=== PATIENT | male | born 1950 | race Caucasian/White ===

== ENCOUNTER → 2017-07-27 | Outpatient (CLI) | payer BC ==
[~2017-07-27] MED LIST: ASCO1CAP3 PO; ATOR80TA PO; COEN1CAP17 PO; LEVO25TA PO; MULT-892 PO; OMEG1CAP81 PO; SERT-234 PO; WLLXL300 PO
--- NOTE | 2017-08-03 08:04 | CODING QUERY MEDICAL NECESSITY ---
SUPPORTING DIAGNOSIS NEEDED A supporting diagnosis is required for the test/procedure performed on this patient in order for us to be reimbursed by the patient's insurance. Please provide a supporting diagnosis for the following test/procedure listed below next to the test name along with your signature. *If there is no additional diagnosis for this patient that would support the following test/procedure please document that below next to the test/procedure. Test(s)/Procedure(s) that require a supporting diagnosis: * DXA, BONE DENSITY AXIAL DIAGNOSIS: Provider Signature: Date: Thank you Corry K[facility] Information Management Once completed, please kindly fax back to [phone] For questions please call [phone]
== END | disposition home or self-care (01) ==
LOC: C.MAMM 08:22
PROVIDERS: ATTEND Family Medicine
DX: Z87.81 Personal history of (healed) traumatic fracture (principal)

== ENCOUNTER → 2017-10-16 | Outpatient (CLI) | payer OTHER ==
--- NOTE | 2017-10-16 14:03 | DIAGNOSTIC IMAGING REPORT ---
LEFT FOOT 3 VIEWS CLINICAL HISTORY: Left foot pain. FINDINGS: 3 views of the left foot are obtained. No prior studies are available for comparison at the time of dictation. The skeletal structures are osteopenic. There are postoperative changes from osteotomy and fusion at the first metatarsophalangeal joint. A buttress plate and cortical lag screw transfixes the joint space. 2 of the screws transfix the buttress plate appear to be fractured. There is persistent hallux valgus, with irregularity along the articular surface and failure of bony fusion and surrounding bony overgrowth. There is an osteotomy involving the second through fifth metatarsal heads. No acute fracture is identified. Degenerative spurring seen along the dorsal aspect of the tarsal bones. Mild soft tissue swelling is suggested in the forefoot. IMPRESSION: 1. Small tissue swelling with no acute bony abnormality clearly identified. 2. Osteopenia, hallux valgus, and postoperative change as above. 3. Two of the cortical lag screws transfixing the buttress plate at the first metatarsophalangeal joint appear to be fractured. There is failure of bony fusion at the first MTP. Electronically signed by: Yousuf Nicholas M.D. 10/16/2017 2:02 PM Dictated Date/Time: 10/16/2017 1:59 PM
== END | disposition home or self-care (01) ==
LOC: C.RAD1850 13:50
PROVIDERS: ATTEND Family Medicine
DX: M79.672 Pain in left foot (principal)

== ENCOUNTER → 2017-12-21 | Outpatient (CLI) | payer OTHER ==
[~2017-12-21] MED LIST changes: +CIPR1TAB11 PO; +OPTIRAY 320 IV PRN
--- NOTE | 2017-12-21 12:39 | DIAGNOSTIC IMAGING REPORT ---
RIGHT FOOT CT CT DOSE: 197.34 mGy.cm HISTORY: Right foot NON HEALING WOUND TECHNIQUE: Multiaxial CT images of the right foot were performed and reformatted in the sagittal and coronal plane without the use of contrast. A dose lowering technique was utilized adhering to the principles of ALARA. COMPARISON: Right foot MRI 02/25/2015. FINDINGS: No areas of cortical destruction or suspicious erosions to suggest osteomyelitis. Specifically, the bones at the first MTP joint show no definite evidence for osteomyelitis. The sesamoid bones at the head of the first metatarsal are partially fused. Moderate osteoarthritis at the first MTP joint and mild to moderate osteoarthritis within the DIP and PIP joints. The fourth toe is not identified and likely surgically absent. No acute fracture or dislocation identified within the right foot. Postoperative changes consistent with fusion of the first tarsometatarsal joint. There is a single screw traversing of the joint which appears intact. There is a second screw through the proximal shaft of the first metatarsal with the tip extending into the proximal shaft of the second metatarsal. Flexion deformities seen within the toes. There is also lateral angulation of the first through third toes. Moderate osteoarthritis at the second and third MTP joints. Cortical thickening within the distal shafts the third metatarsal favors an old, healed fracture. Soft tissue thickening/swelling at the plantar aspect of the first MTP joint. No loculated fluid collections to suggest an abscess. There is also a 7 mm skin ulceration at the plantar aspect of the first MTP joint. Subcutaneous fluid at the plantar aspect of the heel. This does not appear to be loculated and favors edema. IMPRESSION: 1. No evidence for osteomyelitis within the right foot. 2. Soft tissue swelling/thickening at the plantar aspect of the first MTP joint. This favors a cellulitis. There is also a 7 mm skin ulceration at this location. No loculated fluid collections to suggest an abscess. 3. Postoperative and degenerative changes as described above. Electronically signed by: Jarret Corbett M.D. 12/21/2017 12:37 PM Dictated Date/Time: 12/21/2017 12:26 PM
== END | disposition home or self-care (01) ==
LOC: C.CTS 11:50
PROVIDERS: ATTEND Physician Assistant
DX: S91.301A Unspecified open wound, right foot, initial encounter (principal); X58.XXXA Exposure to other specified factors, initial encounter

== ENCOUNTER 2022-02-18 05:31 | Observation (INO) ==
--- NOTE | 2021-12-13 10:23 | PAT Medication Instructions ---
Medication Instructions Date of Service December 13, 2021 Home Medications atorvastatin 20 mg tablet 20 mg PO HS sertraline 100 mg tablet 50 mg PO HS ascorbic acid (vitamin C) 1,000 mg tablet (Vitamin C) 1 g PO QAM cholecalciferol (vitamin D3) 25 mcg (1,000 unit) tablet (Vitamin D3) 1,000 mcg PO QAM levothyroxine 125 mcg tablet 125 mcg PO QAM noxqsnhrbigy-kgkfwuva-zpktym tablet 1 tab PO DAILY omega-3 fatty acids 1,000 mg PO QAM bupropion HCl 150 mg 24 hr tablet, extended release 150 mg PO QAM coenzyme Q10 100 mg capsule (CoQ-10) 200 mg PO HS omeprazole 20 mg tablet,delayed release 20 mg PO HS STOP taking 2 weeks before surgery omega-3 fatty acids 1,000 mg PO QAM coenzyme Q10 100 mg capsule (CoQ-10) 200 mg PO HS DO NOT take the morning of surgery ascorbic acid (vitamin C) 1,000 mg tablet (Vitamin C) 1 g PO QAM cholecalciferol (vitamin D3) 25 mcg (1,000 unit) tablet (Vitamin D3) 1,000 mcg PO QAM hmlfxmurdwyy-rqesdlui-tvyhmv tablet 1 tab PO DAILY Take morning of surgery With a small sip of water, OTHERWISE NOTHING TO EAT OR DRINK AFTER MIDNIGHT: levothyroxine 125 mcg tablet 125 mcg PO QAM bupropion HCl 150 mg 24 hr tablet, extended release 150 mg PO QAM Take evening before surgery atorvastatin 20 mg tablet 20 mg PO HS sertraline 100 mg tablet 50 mg PO HS omeprazole 20 mg tablet,delayed release 20 mg PO HS Other Notes If you have any questions please call us at [phone] or [phone] or [phone] or [phone]
--- NOTE | 2022-01-24 11:00 | Anesthesiology Consultation ---
Date of Service January 24, 2022 Assessment & Plan (1) Encounter for pre-operative examination: Chart Review Chart Review: Acceptable Risk for Surgery (pending preop Covid testing results ) and Patient seen in Pre Admission Testing - Discussed with Dr. Bacon- due to chronic foot ulcers and other comorbidities- pt is NOT a Same Day Joint candidate- surgeon's office informed Per PAT appt on 01/24/22, patient denies any recent travel or large group activities. No known Covid positive exposures or Covid related symptoms. No known Covid infection in the past 90 days. Pt is vaccinated for Covid. Preop Covid testing scheduled 02/18/22 = will await results. Educated on importance of self quarantining, social distancing and wearing mask in public for the patient one week prior to surgery and after Covid testing done Pt seen by cardio 12/17/21= Non pressure chronic ulcer of right foot- following with wound clinic x years. Aneurysm of artery lower extremity - will order a bdominal angiogram, nuclear stress test and ECHO. Hyperlipidemia. Atherosclerosis of extremities with ulcerationcontinue aspirin. Rashade did discuss left TKA with patient which is scheduled for January. Advised him surgeon aware of stent placement to avoid tourniquet on this area with surgery. He reports surgeon already aware of wound on left lower extremity. Teaching & Discussion Pre-Anesthesia Teaching/Discussion Notes: Instructed NPO after midnight before surgery,except medications with 15 cc of water. Medication instructions provided according to the PAT guidelines. History Surgery Operation Date: 02/18/22 07:00 Proposed Procedures p OP: Left Total Knee Arthroplasty - Fredo Sullivan MD Height/Weight Height: 5 ft 10 in Weight: 84.8 kg Allergies Allergy/AdvReac Type Severity Reaction Status Date / Time No Known Allergies Allergy Unverified 01/19/22 15:41 Medications Home Medications Medication Instructions Recorded Confirmed Last Taken atorvastatin 20 mg tablet 20 mg PO HS 09/21/18 01/19/22 09/20/18 ascorbic acid (vitamin C) 1,000 mg 1 g PO QAM 05/21/20 01/19/22 Unknown tablet (Vitamin C) cholecalciferol (vitamin D3) 25 1,000 mcg PO QAM 05/21/20 01/19/22 Unknown mcg (1,000 unit) tablet (Vitamin D3) levothyroxine 125 mcg tablet 125 mcg PO QAM 05/21/20 01/19/22 05/21/20 yvfmyxuxchnv-pjkktjaz-xgzoam tablet 1 tab PO QAM 05/21/20 01/19/22 Unknown omega-3 fatty acids 1,000 mg PO QAM 05/21/20 01/19/22 Unknown bupropion HCl 150 mg 24 hr tablet, 150 mg PO QAM 12/10/21 01/19/22 Unknown extended release coenzyme Q10 100 mg capsule 200 mg PO HS 12/10/21 01/19/22 Unknown (CoQ-10) omeprazole 20 mg tablet,delayed 20 mg PO HS 12/10/21 01/19/22 Unknown release duloxetine 60 mg capsule,delayed 60 mg PO QAM 01/19/22 01/19/22 Unknown release (Cymbalta) lisinopril 10 mg tablet 10 mg PO HS 01/19/22 01/19/22 Unknown Past Medical History Medical History (Updated 01/25/22 @ 09:21 by Mendy Guerra PA-C) Chronic back pain Degenerative disc disease GERD (gastroesophageal reflux disease) Well controlled and stable Hx MRSA infection ~2011 in a foot ulcer. No issues since that time Hyperlipidemia On Lipitor Hypothyroid Lumbar discitis 2018. 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 Does have small opening on left big toe (pt will discuss with surgeon- but did inform surgeon's office) Exercise / Class Metabolic Activity II 4-5 Yardwork/Stairs/Walk up hill (one flight of stairs - no chest pain or SOB ) Past Family History Family History Father Myocardial infarction Mother Heart disease Other Cancer Hypertension Lung disease Past Surgical History Surgical History History of amputation (~2003) Right foot 4th toe. History of bunionectomy of left great toe History of bunionectomy of right great toe History of cataract surgery (~2011) bilateral History of colonoscopy History of esophagogastroduodenoscopy (EGD) S/P debridement multiple on bilateral feet. S/P PICC central line placement (~2019) Past Anesthesia History No Hx of Anesthesia Complications and No Family Hx of Anesthesia Complications History of PONV No Hx of PONV and No Hx of Motion Sickness Social History Smoking Status: Never smoker Do You Dip or Chew Tobacco: No Hx Alcohol Use: Yes Alcohol type: beer alcohol intake frequency: a few times a week Hx Substance Use: No substance use type: does not use Review of Systems Patient denies chest pain, shortness of breath, dyspnea on exertion, cough, wheezing, palpitations. No hx of seizures, stroke, VT, apnea/snoring. No hx of blood clots or blood transfusions Physical Exam Vital Signs VITALS BP 124/81 P 70 TEMP 98.2 SP02 95% RESP 16 Constitutional no acute distress ENMT Mouth: no TMJ clicking Thyromental Distance: > or= 3.5 Finger Breadths (3.5) Mallampati Class: III Crowns to molars Getting crowns bottom front teeth in near future (pt will discuss with surgeon first- surgeon's office informed) Neck + limited neck extension (significant ) Respiratory normal respiratory effort; no respiratory distress Auscultation: lungs clear to auscultation bilaterally; no wheezes Cardiovascular Rate/Rhythm: regular rate and regular rhythm Heart Sounds: no murmur Vessels: no carotid bruit Musculoskeletal Spine: no pain with cervical ROM Extremities: extremities normal to inspection Psychiatric Orientation: alert Lab Results Anesthesia Preop Results Results Anesthesia Widget: WBC 5.71 K/uL (4.8-10.8) 01/24/22 Hgb 14.5 g/dL (14.0-18.0) 01/24/22 Hct 42.8 % (42-52) 01/24/22 Plt 157 K/uL (130-400) 01/24/22 Na 137 mmol/L (136-145) 01/24/22 K 5.0 mmol/L (3.5-5.1) 01/24/22 Cl 104 mmol/L (98-107) 01/24/22 CO2 27 mmol/L (21-32) 01/24/22 BUN 22 mg/dl (6-23) 01/24/22 Creat 1.12 mg/dl (0.6-1.4) 01/24/22 Glucose Level 95 mg/dl (70-99(Fasting)) 01/24/22 PT 11.3 Seconds (9.0-12.0) 01/24/22 PTT 28.0 Seconds (21.0-31.0) 01/24/22 INR 1.1 (0.9-1.1) 01/24/22 HA1c 6.2 % (4.5-5.6) H 01/24/22 Blood Type A Positive 01/24/22 Antibody Screen NEGATIVE 01/24/22 Testing Electrocardiogram Date: 12/17/21 Findings: + SB @ (59bpm ) Otherwise normal EKG per cardio. Chest X-Ray Date: 01/24/22 Findings: + NAD FINDINGS: Frontal and lateral radiographs of the chest demonstrate the cardiomediastinal silhouette to be within normal limits. The lungs are clear of alveolar opacities. There is no evidence for effusion bilaterally. There is no evidence for vascular congestion. There is no acute osseous pathology. Minimal old anterior wedge deformities are seen within the thoracic spine with an exaggerated kyphotic curvature. Echocardiogram Date: 01/18/22 EF: 50-55% LV Function: normal Other Findings: + LVH (moderate/concentric ) LA and RA mildly dilated. Mild AR. Mild thickening of the MV anterior and posterior leaflets. Minimal MR> Aortic root and ascending aorta is minimally dilated. Stress Test Date: 01/18/22 Type: nuclear Abnormal pharmacologic stress nuclear study but negative for ischemia. No significant ischemia detected. Abnormal SPECT perfusion imaging with fixed perfusion defect. Abnormal SPECT perfusion imaging with fixed perfusion defect likely related to diaphragmatic attenuation in the inferior segments. Stress EKG results normal. Normal LV systolic function. Gated study showed the EF was 45-50%. Other Testing Abdominal Aortogram/Selective Angiography of Bilateral SFA, lower extremity angiograms 01/14/22= Severely dilated iliofemoral segments with no discrete aneurysms noted. PVRs and segmental pressures of lower extremity 12/17/21 = essentially normal pulse volume recordings and segmental pressures of the right and left lower extremities at rest. Photo plethysmography was also performed on the right first digit revealing essentially normal waveforms. Pressures and waveforms not able to be obtained on the left digit secondary to digit size and wound dressing. The resting toe/brachial index is 0.90 on the right. Digit pressure of 142 on the right suggests adequate healing potential. Compared to previous study dated 07/07/2020, there is no significant change. Recommend arterial Doppler ultrasound. Lower extremity venous color duplex scan 12/17/2021 = study was performed with patient standing and in steep reverse Trendelenburg. Deep venous reflux noted in the right CFV and aVF. Right GSV is incompetent at the level proximal thigh. Left GSV is incompetent at the level of the saphenofemoral junction. GSV branches at the level of the knee bilaterally with tortuous varicosities noted distally. No reflux noted in bilateral SSV's. No evidence of DVT in right or left lower extremity. Lower arterial ultrasound 12/17/2021 = right lower extremity with normal resting MARIAN. No significant arterial occlusive disease noted. Left lower extremity with normal resting MARIAN. No significant arterial occlusive disease at rest. Minimal atherosclerotic plaque. No hemodynamically significant stenosis in the bilateral lower extremities. Brain MRI 09/23/18= No acute intracranial findings. No intracranial mass or pathologic enhancement. No abscess. White matter T2 hyperintense foci which suggest small vessel disease. Head and Neck CTA 09/21/18= Unremarkable CTA of the head and neck without aneurysm, dissection, high-grade stenosis or proximal branch occlusion. Extensive mixed plaque formation about the bilateral carotid bulbs results in less than 50% luminal narrowing. Mild tortuosity about the proximal left vertebral artery. The right vertebral artery is unremarkable and widely patent.
--- NOTE | 2022-02-12 10:24 | History and Physical Report ---
CHIEF COMPLAINT: Persistent left knee pain, discomfort, and swelling. HISTORY OF PRESENT ILLNESS: The patient is a 71-year-old gentleman who has been a long-term patient of our practice. He has got a several-year history of increasing left knee pain and discomfort and r ecurrent swelling. He has been treated by my partner, Dr. Chau, in the past. There are multiple as pirations and injections, which have been less successful as time has gone on. He has got global pain . He is having trouble walking any distance. The more he is up and on it, the more it hurts, the mo re it swells. He would like to have his knee fixed. The patient does have a history of a back abscess 3 years ago, treated at [facility]. This has been all cleared up for several years. He also has a history of some foot problems and did apparently have a n MRSA infection in the past. He has not had any wounds or significant wounds on his foot in several years. PAST MEDICAL HISTORY: 1. Hypothyroidism. 2. Elevated cholesterol. 3. History of back arthritis and history of abscess. PAST SURGICAL HISTORY: Includes: 1. Right foot surgery multiple times with some infection in the past including MRSA 10 plus years ag o. 2. Left foot surgery. 3. Back surgery for a staph infection. ALLERGIES: None. CURRENT MEDICATIONS: Includes: 1. Atorvastatin. 2. Zoloft. 3. Synthroid. 4. Bupropion. 5. Cymbalta. SOCIAL HISTORY: This is a 71-year-old male. He is . Fairly active. Tries to walk regularly . Does not smoke. FAMILY HISTORY: Noncontributory. REVIEW OF SYSTEMS: Negative for diabetes. No neurological or vascular problems. He does have a his tory of MRSA infection in the past. Also has a history of spine abscess. PHYSICAL EXAMINATION: GENERAL: Shows a pleasant middle-aged male. Looks to be in pretty good health. HEENT: Benign. NECK: Supple. No lymphadenopathy. LUNGS: Clear to auscultation. HEART: Regular rate and rhythm. ABDOMEN: Soft, nontender, nondistended. EXTREMITIES: Grossly neurovascularly intact except as follows. Examination of his back reveals no obvious deformity. There is no redness or swelling. He has got a stiff back. No pain with palpation. He is neurologically intact. No signs of infection. Examination of the left knee reveals a valgus alignment to his knee, which is increased with weightbe aring. He has got a large knee joint effusion. Range of motion about 5 to 10 degrees short of full extension to 100 degrees of flexion. There is no instability. No pain with hip motion. Examination of the foot reveals chronic foot deformities. Multiple surgeries. No open wounds. Toes are very stiff. X-RAYS: X-rays of the left knee reviewed. It shows advanced left knee DJD. He has complete loss of his lateral joint space. Has got tibial femoral subluxation. ASSESSMENT: A 71-year-old gentleman with history of infection in the past including MRSA with advanc ed left knee degenerative joint disease. He has failed conservative treatment. He would like to hav e his knee fixed. He has not had any real active infections in 3 years since his back surgery and it looks to be stable. We did get a sed rate and it is normal at 4. PLAN: We discussed treatment. We are going to proceed with left knee replacement. The risks and be nefits of this procedure were explained to the patient include but not limited to DVT, PE, , inf ection, neurological injury, vascular injury, bleeding problem, pain, limited range of motion, stiffn ess, incomplete relief of symptoms, etc. The patient understands and desires to proceed. Informed c onsent was obtained. Due to his history of MRSA infection, we are going to give him Ancef and vancomycin preoperatively. We will likely put some vancomycin in the cement. He is planning to be discharged to home using [facility]. Job ID: [id number]
[~2022-02-18 05:31] MED LIST changes: -ASCO1CAP3 PO; -ATOR80TA PO; -CIPR1TAB11 PO; -COEN1CAP17 PO; -LEVO25TA PO; -MULT-892 PO; -OMEG1CAP81 PO; -OPTIRAY 320 IV PRN; -SERT-234 PO; +VANCOMYCIN HCL 1,250 MG in SODIUM CHLORIDE 0.9% 250 ML IV SCH; -WLLXL300 PO
[2022-02-18] MEDS ORDERED: FAMOTIDINE 20 MG TAB PO SCH (06:00)
[2022-02-18] MEDS ORDERED: ACETAMINOPHEN 500 MG TAB PO SCH (06:00)
[2022-02-18] MEDS ORDERED: GABAPENTIN 300 MG CAP PO SCH (06:00)
[2022-02-18] MEDS ORDERED: TRANEXAMIC ACID 1,000 MG **IV Intra-op IV SCH (06:00)
[2022-02-18] MEDS ORDERED: LR 60ML/HR IV SCH (06:00)
[2022-02-18] MEDS ORDERED: BUPIVACAINE LIPOSOME/PF 266 MG, BUPIVACAINE/EPINEPHRINE 50 ML, SODIUM CHLORIDE 0.9% 30 ... INFIL SCH (06:00)
[2022-02-18] MEDS ORDERED: ceFAZolin 2000MG 2,000 MG/15 ML SYR IV SCH (06:00)
[2022-02-18] MEDS ORDERED: Scopolamine 1 MG TDSY TD SCH (06:00)
[2022-02-18] MEDS ORDERED: LR 500ML BOLUS, THEN 15ML/HR IV SCH (06:00)
[2022-02-18] MEDS ORDERED: ROPIVACAINE 0.5% 5 MG/ML 30 ML VIAL ONE (06:23)
[2022-02-18] MEDS ORDERED: BUPIVACAINE 0.5 % 5 MG/1 ML PF 10ML VIAL ONE (06:23)
[2022-02-18] MEDS ORDERED: MEPERIDINE HCL 25 MG/ML CARP/VIAL IV PRN (06:37)
[2022-02-18] MEDS ORDERED: MoRPHine SULFATE 10 MG/ML CARP/VIAL IV PRN (06:37)
[2022-02-18] MEDS ORDERED: ATROPINE SULFATE 0.1 MG/ML 10ML SYR IV PRN (06:37)
[2022-02-18] MEDS ORDERED: fentaNYL citrate 100 MCG/2 ML VIAL IV PRN (06:37)
[2022-02-18] MEDS ORDERED: ONDANSETRON INJ 2 MG/ML 2 ML VIAL IV PRN ×2 (06:37→11:26)
[2022-02-18] MEDS ORDERED: ePHEDrine sulfate 50 MG/ML AMP IV PRN (06:37)
[2022-02-18] MEDS ORDERED: BUPIVACAINE/EPINEPHRINE 0.25% 1:200,000 30 ML VIAL ONE (06:39)
[2022-02-18] MEDS ORDERED: BUPIVACAINE LIPOSOME 1.3% 266 MG/20 ML VIAL ONE (06:39)
[2022-02-18] MEDS ORDERED: SODIUM CHLORIDE 0.9% PF 50 ML VIAL ONE (06:40)
[2022-02-18] MEDS ORDERED: MIDAZOLAM HCL 1 MG/ML 2ML VIAL ONE (06:42)
[2022-02-18] MEDS ORDERED: fentaNYL citrate 100 MCG/2 ML VIAL ONE ×2 (06:42→07:29)
--- NOTE | 2022-02-18 06:55 | History & Physical Bridge Note ---
Date of Service February 18, 2022 History & Physical Bridge Note I have examined the patient, reviewed the History & Physical and in the interval since the performance of the History & Physical I have noted the following changes of clinical significance: no changes noted
[2022-02-18] MEDS ORDERED: VANCOMYCIN HCL 1000MG/20ML VIAL ONE (07:07)
[2022-02-18] MEDS ORDERED: ePHEDrine sulfate 50 MG/ML AMP ONE ×2 (07:23→08:47)
[2022-02-18] MEDS ORDERED: ONDANSETRON INJ 2 MG/ML 2 ML VIAL ONE (07:23)
[2022-02-18] MEDS ORDERED: PHENYLEPHRINE 100MCG/ML 5ML SYR ONE (07:23)
[2022-02-18] MEDS ORDERED: PHENYLEPHRINE HCL 10 MG/ML VIAL ONE (07:23)
[2022-02-18] MEDS ORDERED: PROPOFOL IV EMULSION 10 MG/ML 20 ML VIAL IV ONE (07:23)
[2022-02-18] MEDS ORDERED: HYDROmorphone INJ 2 MG/ML SYR/VIAL ONE (08:05)
--- NOTE | 2022-02-18 09:09 | Operative Report ---
PG Post Operative Report Pre & Post Diagnosis Operation Date: 02/18/22 07:00 Pre-Op Diagnosis: Left Knee Osteoarthritis Post-Op Diagnosis: Left Knee Osteoarthritis I identified the patient and participated in the time-out.: Yes Procedure Operation Date: 02/18/22 07:00 Actual Procedures p Left Total Knee Replacement(Left) - Fredo Sullivan MD Surgeon Fredo Sullivan MD [employer] Distribution Supervisor José Joseph PA-C Estimated Blood Loss 50 Findings Consistent with Post-Op Diagnosis Operative findings revealed advanced left knee DJD. He had a very large knee joint effusion. It was a noninflammatory. He had an extensive grade 4 degenerative change primarily of the lateral compartment and some of the patellofemoral compartment. He had a very stiff knee with near full extension but only bend about 90degrees. Fluids 600 cc Specimens Left knee sent for pathology Anesthesia Type General Regional Complications none Disposition Accompanied Patient To Recovery: No Indications Patient is 71-year-old very active gentleman who said a long history of knee problems particular respect to the left knee. Is been treated over the years by my partner Dr. Chau for advanced knee DJD and recurrent effusions. He failed conservative measures. He continued to have recurrent large knee effusions. X- rays show advanced lateral compartment arthritis. He elected proceed with surg ical management. Of note, patient does have a history of multiple foot surgeries and history of a spine surgery and infection. This is all cleared up for several years without signs of recurrence. 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 Description of Procedure Operative implants consist of: 1 Biomet Vanguard size 72.5 left posterior stabilized femoral component. 2. Biomet size 83 tibial tray. 3. 10 mm posterior stabilized polyethylene insert. 4. 34 x 8 and half all polypatella. The patient was taken to the operating, identified, placed on the operating table supine position protectors were properly padded. IV antibiotics tried by anesthesia team. A abductor canal block had provided in the holding area. A general anesthetic was implemented. A left thigh tent was then placed and left lower extremities then prepped and draped in usual sterile fashion. The left leg was elevated exsanguinated with use of an Esmarch in terms playset 300 mmHg. An anterior posterior left knee was then performed through an incision centered over the patella. Sharp dissection Through subcutaneous this down to the extensor mechanism. A medial parapatellar arthrotomy incision was made. Some subperiosteal dissection was carried out medially. The fat pad was dissected beneath patella tendon. The lateral patellofemoral ligament was released. Patella subluxated laterally and the knee was flexed with the osteophytes taken off distal femur. The ACL and PCL were then released from distal femur and tibia subluxated anteriorly. External tibial alignment jig was then placed in the interface the tibia and adjusted 14 mm medially. Proximal tibial cut was made removed about 2 to 3 mm of bone from the medial side. The tibia was then sized to a size 83. Attention drawn the femur. The distal femur stem with a sharp drill. Intramedullary canal was suction. A left 5 degree valgus cutting guide was placed. The distal femoral cutting block was pinned in place. Distal femoral cut was made to take an additional 5 mm of bone off distal femur as the initial +3 cut did not get down to the notch area. The knee was brought out in extension. I did not feel like I need to release any the IT band as the extension gap was equal. The femur was then sized to a 72.5. He did downsize this about half a size. The AP cutting block was pinned parallel to the epicondylar axis which was 6 degrees of external rotation. The anterior cut, anterior chamfer, posterior cut, posterior chamfer cuts were made. The box cutting guide was placed in just slight lateral box cut was made. The knee was flexed. The remnants of the medial lateral menisci were excised. The osteophyte taken off the posterior aspect the femur. I did have to release the popliteus in order to equalize the flexion gap. The femoral trial was placed. The tibial tray was pinned in maximum external rotation and the drill and stem punch were used to create defect in proximal tibia for the tibial tray. Knee was then trialed and the 10 mm insert fit most appropriately. Attention drawn the patella. The patella was cleaned of all soft tissues. Patella thickness measured 25 mm in thickness and we cut this down to 15. It was sized to a size 34 patella. The lug holes for the patella button within created. The lateral osteophyte is moved. Patella button was placed. The knee was taken through a range of motion patella tracked nicely with no thumbs test. He continued to have some stiffness in the knee with a similar range of motion to about [address] elect to place these implants. Nupathe all trial implants were removed. A bone plug was placed in the distal femur limit blood loss. A double batch Palacos G cement was mixed. I did add an additional gram of vancomycin due to his history of multiple infections in the past. 80 Biomet Vanguard size 72.5 left posterior stabilized femoral component, size 83 tibial tray, a 10 mm posterior stabilized polyethylene insert, and a 34 x 8 Nephril polypatella then cemented in place. Knee was brought out into full extension until cement hardened. Final cement check was then performed. The pericapsular tissues were injected with total 100 cc of combination of 20 cc of Exparel, 30 cc of normal saline, 50 cc of quarter percent Marcaine with epinephrine. Patient did receive 1 g tranexamic acid. The tourniquet was then let down for final turn time of 69 minutes. Hemostasis assured use electrocautery. Extensor mechanism closed with combination 1 PDS suture #1 Vicryl suture in [id number] fashion. Extensor mechanism checked found to be intact. Subcutaneous tissue then closed with 2 Dexon suture. And the skin was closed skin jhony. Leg was then cleaned and dried a sterile dressing was Xeroform, 4 fours, sterile cast padding, Ty bandage were applied. Patient then transferred to the recovery room in stable condition. Patient tolerated procedure well and there were no complications. José Joseph, my physician plastic surgery assistant, was present for the entire procedure. His assistance was essential and required for appropriate patient positioning, prepping and draping, surgical exposure, performing the technical details of the operation, placement the implants, closure of the wound, and placement of the sterile bandage. I attest to the content of the Intraoperative Record and any orders documented therein. Any exceptions are noted below.
--- NOTE | 2022-02-18 09:37 | XRay Report ---
XR knee LT 1 or 2V routine HISTORY: 71 years-old Male Surgical Post Op left knee total joint arthroplasty COMPARISON: Knee radiographs 08/12/2021 TECHNIQUE: 2 views of the left knee FINDINGS: Left knee total joint arthroplasty with patellar resurfacing. Anterior midline skin jhony are noted along with expected postoperative soft tissue swelling with deep tissue air. No acute fracture or un expected opaque foreign body. Vascular calcifications. IMPRESSION: Total joint arthroplasty with expected postoperative changes. ACT 112: Negative or not required by law. The above report was generated using voice recognition software. It may contain grammatical, syntax o r spelling errors. Electronically signed by: Milind Telles M.D. 02/18/2022 9:36 AM
--- NOTE | 2022-02-18 10:00 | Anesthesiology Progress Note ---
Date of Service February 18, 2022 Anesthesia Post Procedure Vital Signs Vital Signs: Temp Pulse Pulse Resp BP Pulse Ox 02/18/22 09:50 36.3 C L 85 14 98/64 L 97 02/18/22 09:40 83 16 92/66 L 94 02/18/22 09:30 85 15 101/62 97 02/18/22 09:20 87 20 99/71 L 96 02/18/22 09:10 81 20 93/59 L 95 02/18/22 09:04 36.0 C L 78 16 95/68 L 95 02/18/22 05:50 37.0 C 72 20 108/71 95 Pain Intensity Left Knee: Pain Intensity: 2 Transfer of Care Handoff Completed per policy Notes Mental Status: alert / awake / arousable Patient Amnestic to Procedure: Yes Nausea / Vomiting: adequately controlled Pain: adequately controlled Airway Patency, RR, SpO2: stable & adequate BP & HR: stable & adequate Hydration State: stable & adequate Anesthetic Complications: no major complications apparent and Pt Satisfied with anesthetic care Notes: Pt with slight hypotension in PACU. Given LR [id number]. Preop SBP 100's. [id number] right medial eyelid bruising noted. No vision problems. Able to open eye. Suspect from eye taped. Discussed with patient. Answered all questions.
[2022-02-18] MEDS ORDERED: DOCUSATE SODIUM/SENNA 50/8.6MG TAB PO SCH (10:59)
[2022-02-18] MEDS ORDERED: NALOXONE HCL 0.4 MG/1 ML VIAL/CARP IV PRN (10:59)
[2022-02-18] MEDS ORDERED: HYDROmorphone INJ 0.5 MG/0.5 ML SYR IV PRN (10:59)
[2022-02-18] MEDS ORDERED: VANCOMYCIN CONSULT ACTIVE PRN (10:59)
[2022-02-18] MEDS ORDERED: NON-FORMULARY MEDICATION (Ascorbic Acid (Vitamin C) [Vitamin C] 1,000 mg Tablet) PO SCH (10:59)
[2022-02-18] MEDS ORDERED: ALUMINUM/MAGNESIUM SUSP 30 ML UDC PO PRN (10:59)
[2022-02-18] MEDS ORDERED: bisacodyL 10 MG SUPP PR PRN (10:59)
[2022-02-18] MEDS ORDERED: MAGNESIUM HYDROXIDE SUSP 30 ML UDC PO PRN (10:59)
[2022-02-18] MEDS ORDERED: METOCLOPRAMIDE HCL INJ 5 MG/ML 2 ML VIAL IV PRN (11:26)
[2022-02-18] MEDS ORDERED: ONDANSETRON 4 MG OD TAB PO PRN (11:33)
[2022-02-18] MEDS: KETOROLAC TROMETHAMINE 15 MG/ML VIAL IV SCH ×3 (12:17→22:41)
[2022-02-18] MEDS: DOCUSATE SODIUM 100 MG CAP PO SCH ×2 (12:18→20:27)
[2022-02-18] MEDS: MULTIVITAMIN TAB PO SCH (12:18)
[2022-02-18] MEDS: SODIUM CHLORIDE 0.9% 1000ML 1,000 ML IV SCH ×2 (14:27→23:01)
[2022-02-18] MEDS: ASPIRIN 81 MG ECTAB PO SCH ×2 (14:28→20:27)
[2022-02-18] MEDS: buPROPion XL 150 MG TABCR PO SCH (14:29)
[2022-02-18] MEDS: CHOLECALCIFEROL 1,000 UNITS 25 MCG TAB PO SCH (14:29)
[2022-02-18] MEDS: OMEGA-3 (PURIFIED FISH OIL) 1 GM CAP PO SCH (14:30)
[2022-02-18] MEDS: DULoxetine HCL 60 MG CAP PO SCH (14:30)
[2022-02-18] MEDS: LOSARTAN POTASSIUM 25 MG TAB PO SCH (14:31)
[2022-02-18] MEDS: CEROVITE ADV FORMULA TAB PO SCH (14:31)
[2022-02-18] MEDS: ACETAMINOPHEN 500 MG TAB PO SCH ×2 (14:32→20:28)
[2022-02-18] MEDS: TAMSULOSIN HCL 0.4 MG CAP PO SCH (14:32)
[2022-02-18] MEDS: TAPENTADOL HCL ER 50 MG TABCR PO SCH ×2 (14:35→20:27)
[2022-02-18] MEDS ORDERED: TRANEXAMIC ACID / 0.7% NACL 1,000 MG/100 ML BAG IV SCH (15:00)
[2022-02-18] MEDS: ceFAZolin 2000MG 2,000 MG/15 ML SYR IV SCH ×2 (17:31→22:41)
[2022-02-18] MEDS: ASCORBIC ACID 500 MG TAB PO SCH (17:31)
--- NOTE | 2022-02-18 18:05 | Progress Notes ---
DATE OF NOTE: 02/18/2022. SUBJECTIVE: A 71-year-old gentleman, postoperative from a left knee replacement. He is doing well. Pain is very well controlled. No chest pain or shortness of breath. Not feeling dizzy or lighthead ed. Just still feels a little groggy. OBJECTIVE: VITAL SIGNS: Temperature 36.6. Vital signs are stable. GENERAL: Shows a pleasant, elderly male. Sitting up in bed. He is awake, alert and oriented. LUNGS: Clear to auscultation. HEART: Regular rate and rhythm. ABDOMEN: Soft, nontender, nondistended. EXTREMITIES: Grossly neurovascularly intact except as follows. Examination of the left leg reveals the leg to be well aligned. Dressings clean, dry and intact. He can dorsiflex and plantarflex his foot appropriately. His toes are fairly stiff. NEUROLOGIC: He is neurologically intact. X-RAYS: X-rays of the left knee from recovery room are reviewed. It shows a left cemented posterior stabilized total knee arthroplasty. Components looked to be in good position. No signs of problems . ASSESSMENT: A 71-year-old gentleman, postoperative from left knee replacement, doing well. His pain is controlled. He is neurologically intact. PLAN: 1. DVT prophylaxis include thigh-high TEDs, SCDs, and aspirin twice a day. 2. PT, OT, weightbear as tolerated. Left total knee protocol. 3. Pain control, doing well with current pain regimen. 4. IV antibiotics x24 hours. 5. Disposition: Plan to discharge to home with some home health once adequately recovered and medic ally stable. Job ID: [id number]
[2022-02-18] MEDS ORDERED: VANCOMYCIN HCL 1,250 MG in SODIUM CHLORIDE 0.9% 250 ML IV SCH (19:00)
[2022-02-18] MEDS: oxyCODONE HCL IR 5 MG TAB (IMMEDIATE RELEASE) PO PRN (19:29)
[2022-02-18] MEDS ORDERED: NON-FORMULARY MEDICATION (Coenzyme Q10 [Coq-10] 100 mg Capsule) PO SCH (21:00)
[2022-02-18] MEDS ORDERED: PANTOprazole 40 MG TAB PO SCH (21:00)
[2022-02-18] MEDS ORDERED: ATORVASTATIN 20 MG TAB PO SCH (21:00)
[2022-02-18] MEDS ORDERED: SENNA 8.6 MG TAB PO SCH (21:00)
[2022-02-19] MEDS: KETOROLAC TROMETHAMINE 15 MG/ML VIAL IV SCH ×2 (05:25→11:26)
[2022-02-19] MEDS: ACETAMINOPHEN 500 MG TAB PO SCH ×2 (05:26→12:52)
[2022-02-19] MEDS ORDERED: LEVOTHYROXINE SODIUM 125 MCG TABLET PO SCH (06:30)
[2022-02-19] MEDS: oxyCODONE HCL IR 5 MG TAB (IMMEDIATE RELEASE) PO PRN (07:50)
[2022-02-19] MEDS: CHOLECALCIFEROL 1,000 UNITS 25 MCG TAB PO SCH (07:51)
[2022-02-19] MEDS: CEROVITE ADV FORMULA TAB PO SCH (07:52)
[2022-02-19] MEDS: buPROPion XL 150 MG TABCR PO SCH (07:52)
[2022-02-19] MEDS: MULTIVITAMIN TAB PO SCH (07:52)
[2022-02-19] MEDS: OMEGA-3 (PURIFIED FISH OIL) 1 GM CAP PO SCH (07:52)
[2022-02-19] MEDS: LOSARTAN POTASSIUM 25 MG TAB PO SCH (07:52)
[2022-02-19] MEDS: ASCORBIC ACID 500 MG TAB PO SCH (07:52)
[2022-02-19] MEDS: TAMSULOSIN HCL 0.4 MG CAP PO SCH (07:52)
[2022-02-19] MEDS: ASPIRIN 81 MG ECTAB PO SCH (07:53)
[2022-02-19] MEDS: DOCUSATE SODIUM 100 MG CAP PO SCH (07:53)
[2022-02-19] MEDS: DULoxetine HCL 60 MG CAP PO SCH (07:53)
[2022-02-19] MEDS ORDERED: dexAMETHasone 10 MG in SYRINGE 0 ML IV SCH (08:00)
[2022-02-19 08:04] LABS: Hematocrit (blood only) 33.7 % (42-52); Hemoglobin 11.3 g/dL (14.0-18.0); Mean Corpuscular Hemoglobin 28.9 pg (25-34); Mean Corpuscular Hgb Conc 33.5 g/dL (32-36); Mean Corpuscular Volume 86.2 fL (80-100); Mean Platelet Volume 9.8 fL (7.4-10.4); Platelet Count 121 K/uL (130-400); RDW Coefficient of Variation 14.3 % (11.5-14.5); RDW Standard Deviation 44.9 fL (36.4-46.3); Red Blood Count 3.91 M/uL (4.7-6.1); White Blood Count 7.27 K/uL (4.8-10.8)
[2022-02-19] MEDS: TAPENTADOL HCL ER 50 MG TABCR PO SCH (08:06)
--- NOTE | 2022-02-19 08:42 | Progress Notes ---
DATE OF NOTE: 02/19/2022. SUBJECTIVE: A 71-year-old gentleman, postoperative day 1 from a left knee replacement. He is doing pretty well. He is having a moderate amount of pain, but dealing with it. No chest pain or shortnes s of breath. He is requesting to go home. OBJECTIVE: VITAL SIGNS: Temperature is 36.7. Vital signs are stable. GENERAL: Shows a pleasant, elderly male. He is sitting up in bed and just eating his breakfast. EXTREMITIES: Examination of the left leg reveals the dressing to be clean, dry and intact. Leg is w ell aligned. He can dorsiflex and plantarflex his foot appropriately. He is neurologically intact. LABORATORY: Hemoglobin 11.3. Hematocrit 33.7. Electrolytes are not recorded. ASSESSMENT: A 71-year-old gentleman, postoperative day 1 from a left knee replacement, doing pretty well. Pain is reasonably well controlled. He is neurologically intact. He is hoping to go home. PLAN: 1. DVT prophylaxis include thigh-high TEDs, SCDs, and aspirin twice a day. 2. PT, OT, weightbear as tolerated. Left total knee protocol. 3. Pain control, doing okay with current pain regimen. 4. Disposition: Plan to discharge to home with some home health later today. Job ID: [id number]
[2022-02-19 08:45] LABS: BUN Creatinine Ratio 16.7 (10-20); Calcium 8.2 mg/dl (8.5-10.1); Creatinine Clr Calc Pharmacy 52.2 ml/min; Est GFR (Non-African American) 51.8 ml/min; Potassium 4.5 mmol/L (3.5-5.1)
--- NOTE | 2022-02-24 06:37 | Discharge Summary ---
Date of Service February 24, 2022 Discharge Data Procedures Performed Operation Date: 02/18/22 07:00 Actual Procedures p Left Total Knee Replacement(Left) - Fredo Sullivan MD Hospital Course (1) Status post total left knee replacement: This patient is a 71 year old male admitted on 02/18/22 and underwent total knee arthroplasty. He tolerated the procedure well and there were no complications. Transferred to the PACU post op and later to the orthopedic floor for further care. He was given ancef for antibiotic prophylaxis. He was also given MELISSA stockings, SCDs, and aspirin for DVT prophylaxis. Hemoglobin, hematocrit, and vital signs were monitored during his hospital stay and remained stable. Did not require any blood transfusions. There were no complications during his hospital stay. By post op day #1 the patient was tolerating a regular diet, pain was reasonably controlled with oral pain medicine, and he was participating in physical therapy. On post op day #1 the patient was discharged home and set up with home health care. He was given printed discharge instructions including prescriptions for extra strength tylenol, aspirin, toradol, zofran, oxycodone, and flomax. Continue physical therapy, weight bearing as tolerated. Continue MELISSA stockings. Follow up approximately 2 weeks post op or sooner if there are problems or concerns. Coding Level of Care Code None Diagnoses Status post total left knee replacement Z96.652
== END 2022-02-19 15:50 | disposition home health service (06) ==
LOC: 3E 05:31 → ASU 05:31

== ENCOUNTER 2022-03-02 18:45 | Inpatient (IN) ==
[2022-03-02] MEDS ORDERED: CEFEPIME 2,000 MG/20 ML VIAL IV STA (18:54)
[2022-03-02] MEDS ORDERED: SODIUM CHLORIDE 0.9% 1000ML 1,000 ML IV SCH ×2 (19:00→20:00)
--- NOTE | 2022-03-02 19:08 | Emergency Department Note ---
History of Present Illness General Chief complaint: Fever Stated complaint: FEVER, CHILLS, KNEE SURGERY 02/18/22 Time Seen by Provider: 03/02/22 18:55 History of Present Illness Provider complaint: Fever chills Onset (ago): day(s) 1 Associated symptoms: + fever/chills and + malaise; no chest pain, no cough, no headaches, no nausea/vomiting or no shortness of breath 71-year-old male presents emergency department for fever and chills. Patient states his symptoms began today. He denies any cough, abdominal pain, headache, difficulty breathing, or chest pain. Patient said that he felt very weak today. Patient states that he just had a surgery done on his left knee by Dr. Sullivan on February 18 a knee replacement. Patient denies any leg pain or swelling. He denies any difficulty breathing. Home Medications Medication Instructions Recorded Confirmed Type atorvastatin 20 mg tablet 20 mg PO HS 09/21/18 03/02/22 History ascorbic acid (vitamin C) 1,000 mg 1 g PO [facility] 05/21/20 03/02/22 History tablet (Vitamin C) cholecalciferol (vitamin D3) 25 1,000 mcg PO QAM 05/21/20 03/02/22 History mcg (1,000 unit) tablet (Vitamin D3) levothyroxine 125 mcg tablet 125 mcg PO QAM 05/21/20 03/02/22 History eaapkztsreii-pjemmwox-gaapon tablet 1 tab PO QAM 05/21/20 03/02/22 History omega-3 fatty acids 1,000 mg PO QAM 05/21/20 03/02/22 History bupropion HCl 150 mg 24 hr tablet, 150 mg PO QAM 12/10/21 03/02/22 History extended release coenzyme Q10 100 mg capsule 200 mg PO HS 12/10/21 03/02/22 History (CoQ-10) omeprazole 20 mg tablet,delayed 20 mg PO HS 12/10/21 03/02/22 History release duloxetine 60 mg capsule,delayed 60 mg PO QAM 01/19/22 03/02/22 History release (Cymbalta) acetaminophen 500 mg capsule 1,000 mg PO TID 30 Days #180 cap 02/16/22 03/02/22 Rx aspirin 81 mg tablet,delayed 81 mg PO BID 45 Days #90 tab 02/16/22 03/02/22 Rx release (Aspirin Low Dose) ondansetron HCl 4 mg tablet 4 mg PO Q6 PRN #30 tab 02/16/22 03/02/22 Rx sennosides 8.6 mg-docusate sodium 1 tab-cap PO DAILY #14 tab 02/16/22 03/02/22 Rx 50 mg tablet (Senokot-S) tamsulosin 0.4 mg capsule (Flomax) 0.4 mg PO DAILY #7 cap 02/16/22 03/02/22 Rx losartan 25 mg tablet (Cozaar) 25 mg PO DAILY 02/18/22 03/02/22 History oxycodone 5 mg tablet 5 - 10 mg PO Q6 PRN #40 tab 03/01/22 03/02/22 Rx amino acids (Amino Acid) 2 cap PO .TID UD 03/02/22 03/02/22 History cephalexin 500 mg capsule 500 mg PO TID 10 Days #30 cap 03/02/22 03/02/22 Rx Allergies Allergy/AdvReac Type Severity Reaction Status Date / Time No Known Allergies Allergy Verified 03/02/22 20:15 Past Med/Surg History Medical History Chronic back pain Degenerative disc disease GERD (gastroesophageal reflux disease) Well controlled and stable Hx MRSA infection ~2011 in a foot ulcer. No issues since that time Hyperlipidemia On Lipitor Hypothyroid Lumbar discitis 2018. 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 History of bunionectomy of left great toe History of bunionectomy of right great toe History of cataract surgery (~2011) bilateral History of colonoscopy History of esophagogastroduodenoscopy (EGD) S/P debridement multiple on bilateral feet. S/P PICC central line placement (~2018) Family History Father Myocardial infarction Mother Heart disease Other Cancer Hypertension Lung disease Social History Smoking Status: Never smoker Second Hand Exposure: Yes (parents smoked); Hx Alcohol Use: Yes Alcohol type: beer Hx Substance Use: No Preferred Language: Bulgarian Communication Ability: Effective Concreter Required: No Beliefs That Will Affect Care: None Current Living Situation: Spouse Feels Safe at Home: Yes Assistive Devices: Walker Review of Systems A total of 10 systems reviewed and were otherwise negative Physical Exam Vital Signs Vital Signs - 24 hr 03/02/22 18:47 03/02/22 19:18 03/02/22 19:27 Temperature 38.2 C H Temperature Source Oral Pulse Rate 122 H 103 H 101 H Pulse Rate [Apical] 106 H Pulse Rate from SpO2 Sensor 101 H Respiratory Rate 20 20 18 Respiratory Effort / Characteristics Non-Labored Spontaneous Blood Pressure 91/64 L Blood Pressure [Right Arm] 103/68 Blood Pressure Mean 73 Blood Pressure Mean [Right Arm] 79 Blood Pressure Position Sitting Blood Pressure Position [Right Arm] Pulse Oximetry 94 93 91 Oxygen Delivery Method Room Air Room Air Sepsis Recent Fever Within 48 Hours No Sepsis New/Unexplained Change in Mental Status No Sepsis Action Taken by Nursing Physician Notified 03/02/22 19:30 03/02/22 19:45 03/02/22 19:53 Temperature Temperature Source Pulse Rate 101 H 98 H 98 H Pulse Rate [Apical] Pulse Rate from SpO2 Sensor 100 H 98 H 96 H Respiratory Rate 10 L 17 15 Respiratory Effort / Characteristics Blood Pressure 85/61 L 87/68 L 104/66 Blood Pressure [Right Arm] Blood Pressure Mean 69 74 78 Blood Pressure Mean [Right Arm] Blood Pressure Position Blood Pressure Position [Right Arm] Pulse Oximetry 92 92 98 Oxygen Delivery Method Sepsis Recent Fever Within 48 Hours Sepsis New/Unexplained Change in Mental Status Sepsis Action Taken by Nursing 03/02/22 19:56 03/02/22 20:00 03/02/22 20:03 Temperature 37.7 C H Temperature Source Oral Pulse Rate 99 H Pulse Rate [Apical] 92 H 94 H Pulse Rate from SpO2 Sensor Respiratory Rate 16 14 Respiratory Effort / Characteristics Non-Labored Spontaneous Blood Pressure 110/83 Blood Pressure [Right Arm] 104/66 110/83 Blood Pressure Mean 92 Blood Pressure Mean [Right Arm] 78 92 Blood Pressure Position Blood Pressure Position [Right Arm] Semi-fowlers Pulse Oximetry 95 Oxygen Delivery Method Room Air Sepsis Recent Fever Within 48 Hours Sepsis New/Unexplained Change in Mental Status Sepsis Action Taken by Nursing 03/02/22 20:15 03/02/22 20:17 03/02/22 20:30 Temperature Temperature Source Pulse Rate 93 H 95 H 95 H Pulse Rate [Apical] Pulse Rate from SpO2 Sensor 165 H 95 H Respiratory Rate 24 18 22 Respiratory Effort / Characteristics Blood Pressure 94/66 L 93/65 L 93/68 L Blood Pressure [Right Arm] Blood Pressure Mean 75 74 76 Blood Pressure Mean [Right Arm] Blood Pressure Position Blood Pressure Position [Right Arm] Pulse Oximetry 95 97 Oxygen Delivery Method Sepsis Recent Fever Within 48 Hours Sepsis New/Unexplained Change in Mental Status Sepsis Action Taken by Nursing 03/02/22 20:31 03/02/22 20:45 03/02/22 21:00 Temperature Temperature Source Pulse Rate 89 91 H Pulse Rate [Apical] 94 H Pulse Rate from SpO2 Sensor 89 91 H Respiratory Rate 16 17 19 Respiratory Effort / Characteristics Non-Labored Spontaneous Blood Pressure 103/70 104/73 Blood Pressure [Right Arm] 93/68 L Blood Pressure Mean 81 83 Blood Pressure Mean [Right Arm] 76 Blood Pressure Position Blood Pressure Position [Right Arm] Pulse Oximetry 96 90 97 Oxygen Delivery Method Room Air Sepsis Recent Fever Within 48 Hours Sepsis New/Unexplained Change in Mental Status Sepsis Action Taken by Nursing 03/02/22 21:33 03/02/22 22:06 Temperature 36.9 C Temperature Source Oral Pulse Rate Pulse Rate [Apical] 93 H 83 Pulse Rate from SpO2 Sensor Respiratory Rate 24 24 Respiratory Effort / Characteristics Non-Labored Spontaneous Non-Labored Spontaneous Blood Pressure Blood Pressure [Right Arm] 100/70 Blood Pressure Mean Blood Pressure Mean [Right Arm] 80 Blood Pressure Position Blood Pressure Position [Right Arm] Semi-fowlers Pulse Oximetry 97 99 Oxygen Delivery Method Room Air Sepsis Recent Fever Within 48 Hours Sepsis New/Unexplained Change in Mental Status Sepsis Action Taken by Nursing Physical Exam GENERAL: He is oriented to person, place, and time. He appears well-developed and well-nourished. He does not appear distressed. HENT: Exam performed. - Head: Normocephalic and atraumatic. - Right Ear: External ear normal. No mastoid tenderness. - Left Ear: External ear normal. No mastoid tenderness. - Mouth/Throat: The oropharynx is clear and moist. No trismus in the jaw. No dental abscesses or uvula swelling. No oropharyngeal exudate or tonsillar abscesses. EYES: Conjunctivae and EOM are normal. Pupils are equal, round, and reactive to light. Right eye exhibits no discharge. Left eye exhibits no discharge. No scleral icterus. NECK: Normal range of motion. Neck supple. No JVD present. No spinous process tenderness present. No carotid bruit present. No rigidity. No tracheal deviation and normal range of motion present. No Brudzinski's sign and no Kernig's sign noted. CV: Normal rate, tachycardic rhythm, normal heart sounds and intact distal pulses. There is no peripheral edema. Palpable radial pulses bue. PULM/CHEST: Effort normal and breath sounds normal. No respiratory distress. No stridor. He has no wheezes. He has no rales. - Chest Wall: He exhibits no tenderness. ABD: The abdomen is soft. Bowel sounds are normal. He has no distension. No mass is present. There is no tenderness. There is no rebound, no guarding, no Ariza's sign and no tenderness at McBurney's point. Rovsig negative. MUSC/SKEL: Lower extremity: Mulugeta in place with no surrounding erythema or di scharge. Wound is clean and dry. LYMPH: No cervical adenopathy. NEURO: He is alert and oriented to person, place, and time. He has normal strength. No cranial nerve deficit or sensory deficit. Coordination and gait normal. GCS eye subscore is 4. GCS verbal subscore is 5. GCS motor subscore is 6. Cerebellar tests wnl. SKIN: Skin is warm and dry. He is not diaphoretic. PSYCH: He has a normal mood and affect. Behavior is normal. Judgment and thought content normal. Course Course 1854: The patient was evaluated in room A1. A complete history and physical exam was performed Cardiac monitoring: An order was placed for continuous cardiac monitoring. The monitor shows a rate of 120 with sinus tachycardia rhythm Sepsis protocols initiated. 2149: Vital signs stable. Labs show a leukocytosis of 19. Procalcitonin is el evated. Lactic acid within normal limits. Urinalysis influenza and COVID- negative. CTA of the chest was conducted which is negative. Patient will be admitted for sepsis. Zosyn and vancomycin ordered for the patient. at bedside now states that the patient does have a history of septicemia. Is not thought that the knee is the source of infection as the wound is clean and dry with no surrounding erythema. Patient will be admitted to the [facility] [place] hospitalist team Dr. Sullivan notified. Administered Medications Sodium Chloride (Nss 1000ml) 1,000 mls @ 125 mls/hr IV .Q8H CAROLINE Stop: 04/01/22 19:59 Last Admin: 03/02/22 20:06 Dose: 125 mls/hr Documented by: [id number] Discontinued Medications Acetaminophen (Acetaminophen 500 Mg Tab) 1,000 mg PO NOW STA Stop: 03/02/22 19:10 Last Admin: 03/02/22 20:02 Dose: Not Given Documented by: [id number] Sodium Chloride (Nss 1000ml) 1,000 mls @ 999 mls/hr IV .Q1H1M CAROLINE Stop: 03/02/22 20:00 Last Infusion: 03/02/22 20:06 Dose: 0 mls/hr Documented by: [id number] Admin: 03/02/22 19:24 Dose: 999 mls/hr Documented by: [id number] Sodium Chloride (Nss 1000ml) 1,000 mls @ 999 mls/hr IV .Q1H1M ONE Stop: 03/02/22 21:25 Last Infusion: 03/02/22 21:32 Dose: 0 mls/hr Documented by: [id number] Admin: 03/02/22 20:30 Dose: 999 mls/hr Documented by: [id number] Piperacillin Sod/Tazobactam Sod (Zosyn) 4.5 gm in 120 mls @ 240 mls/hr IV NOW ONE Stop: 03/02/22 21:21 Last Admin: 03/02/22 21:28 Dose: 240 mls/hr Documented by: [id number] Ioversol (Optiray 320 125ml) 120 ml IV ONCE ONE Stop: 03/02/22 21:22 Last Admin: 03/02/22 21:21 Dose: 120 ml Documented by: [id number] Medical Decision Making Laboratory Data Result diagrams: 03/02/22 19:10 03/02/22 19:10 Lab Results 03/02/22 03/02/22 03/02/22 Range/Units 19:10 19:10 19:10 WBC 19.34 H (4.8-10.8) K/uL RBC 4.00 L (4.7-6.1) M/uL Hgb 11.5 L (14.0-18.0) g/dL Hct 34.2 L (42-52) % MCV 85.5 (80-100) fL MCH 28.8 (25-34) pg MCHC 33.6 (32-36) g/dL RDW Std Deviation 45.2 (36.4-46.3) fL RDW Coeff of [place] 14.5 (11.5-14.5) % Plt Count 223 (130-400) K/uL MPV 9.1 (7.4-10.4) fL Immature Gran % (Auto) 0.4 % Neut % (Auto) 92.8 % Lymph % (Auto) 2.1 % [place] % (Auto) 4.4 % Eos % (Auto) 0.2 % Baso % (Auto) 0.1 % Neut # (Auto) 17.96 H (1.4-6.5) K/uL Lymph # (Auto) 0.40 L (1.2-3.4) K/uL [place] # (Auto) 0.85 H (0.11-0.59) K/uL Eos # (Auto) 0.04 (0-0.5) K/uL Baso # (Auto) 0.01 (0-0.2) K/uL Immature Gran # (Auto) 0.08 H (0.00-0.02) K/uL PT 11.4 (9.0-12.0) Seconds INR 1.1 (0.9-1.1) APTT 27.9 (21.0-31.0) Seconds PTT Ratio 1.0 Sodium (136-145) mmol/L Potassium (3.5-5.1) mmol/L Chloride (98-107) mmol/L Carbon Dioxide (21-32) mmol/L Anion Gap (3-11) BUN (6-23) mg/dl Creatinine (0.6-1.4) mg/dl Est Cr Clr Drug Dosing ml/min Est GFR ( Amer) ml/min Est GFR (Non-Af Amer) ml/min BUN/Creatinine Ratio (10-20) Glucose (70-99(Fasting)) mg/dl Lactate (0.4-2.0) mmol/L Calcium (8.5-10.1) mg/dl Magnesium (1.7-2.4) mg/dl Total Bilirubin (0.2-1.0) mg/dl AST (13-39) U/L ALT (7-52) U/L Alkaline Phosphatase (34-104) U/L Troponin I High Sens (0-20) pg/ml Total Protein (6.0-8.3) gm/dl Albumin (3.4-5.0) gm/dl Globulin (2.5-4.0) gm/dl Albumin/Globulin Ratio (0.9-2) Procalcitonin 5.22 H (0-0.5) ng/ml Urine Color Urine Appearance (Clear) Urine pH (4.5-7.5) Ur Specific [place] (1.000-1.030) Urine Protein (Negative) Urine Glucose (UA) (Negative) Urine Ketones (Negative) Urine Blood (Negative) Urine Nitrite (Negative) Urine Bilirubin (Negative) Urine Urobilinogen (Negative) Ur Leukocyte Esterase (Negative) Urine WBC (Auto) (0-5) /hpf Urine RBC (Auto) (0-4) /hpf U Hyaline Cast (Auto) (0-5) /lpf U Epithel Cells (Auto) (0-5) /lpf Urine Bacteria (Auto) (Negative) SARS-CoV-2 (PCR) (Negative) Influenza Type A (PCR) (Neg) Influenza Type B (PCR) (Neg) RSV (RT-PCR) (Neg) 03/02/22 03/02/22 03/02/22 Range/Units 19:10 19:10 19:29 WBC (4.8-10.8) K/uL RBC (4.7-6.1) M/uL Hgb (14.0-18.0) g/dL Hct (42-52) % MCV (80-100) fL MCH (25-34) pg MCHC (32-36) g/dL RDW Std Deviation (36.4-46.3) fL RDW Coeff of [place] (11.5-14.5) % Plt Count (130-400) K/uL MPV (7.4-10.4) fL Immature Gran % (Auto) % Neut % (Auto) % Lymph % (Auto) % [place] % (Auto) % Eos % (Auto) % Baso % (Auto) % Neut # (Auto) (1.4-6.5) K/uL Lymph # (Auto) (1.2-3.4) K/uL [place] # (Auto) (0.11-0.59) K/uL Eos # (Auto) (0-0.5) K/uL Baso # (Auto) (0-0.2) K/uL Immature Gran # (Auto) (0.00-0.02) K/uL PT (9.0-12.0) Seconds INR (0.9-1.1) APTT (21.0-31.0) Seconds PTT Ratio Sodium 134 L (136-145) mmol/L Potassium 3.9 (3.5-5.1) mmol/L Chloride 102 (98-107) mmol/L Carbon Dioxide 22 (21-32) mmol/L Anion Gap 10 (3-11) BUN 18 (6-23) mg/dl Creatinine 1.31 (0.6-1.4) mg/dl Est Cr Clr Drug Dosing 55.0 ml/min Est GFR ( Amer) 63.9 ml/min Est GFR (Non-Af Amer) 55.2 ml/min BUN/Creatinine Ratio 13.7 (10-20) Glucose 108 H (70-99(Fasting)) mg/dl Lactate 1.3 (0.4-2.0) mmol/L Calcium 9.4 (8.5-10.1) mg/dl Magnesium 1.8 (1.7-2.4) mg/dl Total Bilirubin 2.1 H (0.2-1.0) mg/dl AST 32 (13-39) U/L ALT 39 (7-52) U/L Alkaline Phosphatase 190 H (34-104) U/L Troponin I High Sens 11.5 (0-20) pg/ml Total Protein 7.0 (6.0-8.3) gm/dl Albumin 4.2 (3.4-5.0) gm/dl Globulin 2.8 (2.5-4.0) gm/dl Albumin/Globulin Ratio 1.5 (0.9-2) Procalcitonin (0-0.5) ng/ml Urine Color Urine Appearance (Clear) Urine pH (4.5-7.5) Ur Specific [place] (1.000-1.030) Urine Protein (Negative) Urine Glucose (UA) (Negative) Urine Ketones (Negative) Urine Blood (Negative) Urine Nitrite (Negative) Urine Bilirubin (Negative) Urine Urobilinogen (Negative) Ur Leukocyte Esterase (Negative) Urine WBC (Auto) (0-5) /hpf Urine RBC (Auto) (0-4) /hpf U Hyaline Cast (Auto) (0-5) /lpf U Epithel Cells (Auto) (0-5) /lpf Urine Bacteria (Auto) (Negative) SARS-CoV-2 (PCR) NEGATIVE (Negative) Influenza Type A (PCR) Negative (Neg) Influenza Type B (PCR) Negative (Neg) RSV (RT-PCR) Negative (Neg) 03/02/22 Range/Units 20:08 WBC (4.8-10.8) K/uL RBC (4.7-6.1) M/uL Hgb (14.0-18.0) g/dL Hct (42-52) % MCV (80-100) fL MCH (25-34) pg MCHC (32-36) g/dL RDW Std Deviation (36.4-46.3) fL RDW Coeff of [place] (11.5-14.5) % Plt Count (130-400) K/uL MPV (7.4-10.4) fL Immature Gran % (Auto) % Neut % (Auto) % Lymph % (Auto) % [place] % (Auto) % Eos % (Auto) % Baso % (Auto) % Neut # (Auto) (1.4-6.5) K/uL Lymph # (Auto) (1.2-3.4) K/uL [place] # (Auto) (0.11-0.59) K/uL Eos # (Auto) (0-0.5) K/uL Baso # (Auto) (0-0.2) K/uL Immature Gran # (Auto) (0.00-0.02) K/uL PT (9.0-12.0) Seconds INR (0.9-1.1) APTT (21.0-31.0) Seconds PTT Ratio Sodium (136-145) mmol/L Potassium (3.5-5.1) mmol/L Chloride (98-107) mmol/L Carbon Dioxide (21-32) mmol/L Anion Gap (3-11) BUN (6-23) mg/dl Creatinine (0.6-1.4) mg/dl Est Cr Clr Drug Dosing ml/min Est GFR ( Amer) ml/min Est GFR (Non-Af Amer) ml/min BUN/Creatinine Ratio (10-20) Glucose (70-99(Fasting)) mg/dl Lactate (0.4-2.0) mmol/L Calcium (8.5-10.1) mg/dl Magnesium (1.7-2.4) mg/dl Total Bilirubin (0.2-1.0) mg/dl AST (13-39) U/L ALT (7-52) U/L Alkaline Phosphatase (34-104) U/L Troponin I High Sens (0-20) pg/ml Total Protein (6.0-8.3) gm/dl Albumin (3.4-5.0) gm/dl Globulin (2.5-4.0) gm/dl Albumin/Globulin Ratio (0.9-2) Procalcitonin (0-0.5) ng/ml Urine Color Dark Yellow Urine Appearance Clear (Clear) Urine pH 5.5 (4.5-7.5) Ur Specific [place] 1.022 (1.000-1.030) Urine Protein Negative (Negative) Urine Glucose (UA) Negative (Negative) Urine Ketones Trace H (Negative) Urine Blood Negative (Negative) Urine Nitrite Positive A (Negative) Urine Bilirubin 1+ H (Negative) Urine Urobilinogen Negative (Negative) Ur Leukocyte Esterase Trace H (Negative) Urine WBC (Auto) 1-5 (0-5) /hpf Urine RBC (Auto) 0-4 (0-4) /hpf U Hyaline Cast (Auto) 1-5 (0-5) /lpf U Epithel Cells (Auto) 0-5 (0-5) /lpf Urine Bacteria (Auto) Negative (Negative) SARS-CoV-2 (PCR) (Negative) Influenza Type A (PCR) (Neg) Influenza Type B (PCR) (Neg) RSV (RT-PCR) (Neg) Imaging Data Radiologist's Impression: Chest X-Ray 03/02/22 18:55 XR chest 1V portable HISTORY: Fever. SEPSIS COMPARISON: Chest 01/24/2022. FINDINGS: The cardiac silhouette remains mildly enlarged. Small linear scarlike density persists at the left lung base. No new focal lung consolidations to suggest pneumonia. No evidence for pulmonary edema. No pleural effusions. No pneumothorax. IMPRESSION: No significant change compared to the prior study. No acute process. ACT 112: Negative or not required by law. Electronically signed by: Jarret Corbett M.D. 03/02/2022 7:10 PM Knee X-Ray 03/02/22 19:00 XR knee LT 4V CLINICAL HISTORY: post op infection COMPARISON STUDY: Left knee 02/18/2022. FINDINGS: There is again noted a left total knee arthroplasty. The hardware appears intact. No fracture or dislocation. Skin umlugeta remain in place. No abnormal periprosthetic lucency. Mild vascular calcifications are noted. There is a moderate to large knee effusion and anterior soft tissue swelling. IMPRESSION: 1. Moderate to large knee effusion with anterior soft tissue swelling. 2. Left total knee arthroplasty. The hardware appears intact. ACT 112: Negative or not required by law. Electronically signed by: Jarret Corbett M.D. 03/02/2022 7:10 PM PreliminaryFindingsOnly See Final Report For Complete Findings CTACHEST: No infiltrate, effusion or pneumothorax. The mediastinumis intact. Mild enlargement of the heart. Ascending aorta aneurysmmeasuring 4.1 cm. No dissection. There are coronaryarterycalcifications. Small hiatal hernia. Bilateral subscapularis fattychanges. Degenerative changes of the spine. Impression:No acute findings. No PE. Ascending aorta aneurysm. Radiologist: Kyle Gil M.D. Study ready at 21:42 and initial results transmitted at 21:44 ECG Data Indication: + other (sepsis) Rate (beats per minute): 103 Rhythm: + sinus tachycardia ECG Intervals/blocks: + Normal QRS, + Normal DE and + Normal QT-c ECG ST segments: + Normal ST segments [facility] Narrative 1855: The patient was evaluated in room A1. A complete history and physical exam was performed Cardiac monitoring: An order was placed for continuous cardiac monitoring. The monitor shows a rate of 120 with sinus tachycardia rhythm Sepsis protocols initiated. 2149: Vital signs stable. Labs show a leukocytosis of 19. Procalcitonin is elevated. Lactic acid within normal limits. Urinalysis influenza and COVID- negative. CTA of the chest was conducted which is negative. Patient will be admitted for sepsis. Zosyn and vancomycin ordered for the patient. at bedside now states that the patient does have a history of septicemia. Is not thought that the knee is the source of infection as the wound is clean and dry with no surrounding erythema. Patient will be admitted to the [facility] [place] hospitalist team Dr. Sullivan notified. Impression & Plan Sepsis Discharge Plan Visit Data Chief Complaint: Fever Stated Complaint: FEVER, CHILLS, KNEE SURGERY 02/18/22 ED Provider: Jorge L Hartmann Discharge Problem: Sepsis Patient Disposition: Admitted As Inpatient Forms Stand Alone Forms: My [facility] Prescriptions Prescriptions: No Action ondansetron HCl 4 mg tablet 4 mg PO Q6 PRN (Reason: nausea) Qty: 30 RF: 0 aspirin [Aspirin Low Dose] 81 mg tablet,delayed release (DR/EC) 81 mg PO BID 45 Days Qty: 90 RF: 0 tamsulosin [Flomax] 0.4 mg capsule 0.4 mg PO DAILY Qty: 7 RF: 2 acetaminophen 500 mg capsule 1,000 mg PO TID 30 Days Qty: 180 RF: 0 sennosides-docusate sodium [Senokot-S] 8.6-50 mg tablet 1 tab-cap PO DAILY Qty: 14 RF: 0 oxycodone 5 mg tablet 5 - 10 mg PO Q6 PRN (Reason: pain) Qty: 40 RF: 0 cephalexin 500 mg capsule 500 mg PO TID 10 Days Qty: 30 RF: 0 levothyroxine 125 mcg tablet 125 mcg PO QAM RF: 0 ascorbic acid (vitamin C) [Vitamin C] 1,000 mg Tablet 1 g PO QAM RF: 0 wcccibycpyxp-fzbbkdus-lxedfe Tablet 1 tab PO QAM RF: 0 omega-3 fatty acids Capsule 1,000 mg PO QAM RF: 0 cholecalciferol (vitamin D3) [Vitamin D3] 25 mcg (1,000 unit) Tablet 1,000 mcg PO QAM RF: 0 atorvastatin 20 mg tablet 20 mg PO HS RF: 0 Amino Acid Capsule 2 cap PO .TID UD RF: 0 coenzyme Q10 [CoQ-10] 100 mg Capsule 200 mg PO HS RF: 0 bupropion HCl 150 mg Tablet Extended Release 24 Hr 150 mg PO QAM RF: 0 omeprazole 20 mg Tablet,Delayed Release (Dr/Ec) 20 mg PO HS RF: 0 duloxetine [Cymbalta] 60 mg Capsule,Delayed Release(Dr/Ec) 60 mg PO QAM RF: 0 losartan [Cozaar] 25 mg Tablet 25 mg PO DAILY RF: 0 Referrals Referrals: Cole Dobbins [Primary Care Provider] -
[2022-03-02] MEDS ORDERED: ACETAMINOPHEN 500 MG TAB PO STA (19:09)
--- NOTE | 2022-03-02 19:11 | XRay Report ---
XR knee LT 4V CLINICAL HISTORY: post op infection COMPARISON STUDY: Left knee 02/18/2022. FINDINGS: There is again noted a left total knee arthroplasty. The hardware appears intact. No fractu re or dislocation. Skin jhony remain in place. No abnormal periprosthetic lucency. Mild vascular ca lcifications are noted. There is a moderate to large knee effusion and anterior soft tissue swelling. IMPRESSION: 1. Moderate to large knee effusion with anterior soft tissue swelling. 2. Left total knee arthroplasty. The hardware appears intact. ACT 112: Negative or not required by law. Electronically signed by: Jarret Corbett M.D. 03/02/2022 7:10 PM
--- NOTE | 2022-03-02 19:12 | XRay Report ---
XR chest 1V portable HISTORY: Fever. SEPSIS COMPARISON: Chest 01/24/2022. FINDINGS: The cardiac silhouette remains mildly enlarged. Small linear scarlike density persists at t he left lung base. No new focal lung consolidations to suggest pneumonia. No evidence for pulmonary e randal. No pleural effusions. No pneumothorax. IMPRESSION: No significant change compared to the prior study. No acute process. ACT 112: Negative or not required by law. Electronically signed by: Jarret Corbett M.D. 03/02/2022 7:10 PM
[2022-03-02 19:29] LABS: Basophils # (auto) 0.01 K/uL (0-0.2); Basophils % (auto) 0.1 %; Eosinophils # (auto) 0.04 K/uL (0-0.5); Eosinophils % (auto) 0.2 %; Hematocrit (blood only) 34.2 % (42-52); Hemoglobin 11.5 g/dL (14.0-18.0); Immature Granulocytes # (auto) 0.08 K/uL (0.00-0.02); Immature Granulocytes % (auto) 0.4 %; Lymphocytes % (auto) 2.1 %; Mean Corpuscular Hemoglobin 28.8 pg (25-34); Mean Corpuscular Hgb Conc 33.6 g/dL (32-36); Mean Corpuscular Volume 85.5 fL (80-100); Mean Platelet Volume 9.1 fL (7.4-10.4); Monocytes # (auto) 0.85 K/uL (0.11-0.59); Monocytes % (auto) 4.4 %; Neutrophils # (auto) 17.96 K/uL (1.4-6.5); Neutrophils % (auto) 92.8 %; Platelet Count 223 K/uL (130-400); RDW Coefficient of Variation 14.5 % (11.5-14.5); RDW Standard Deviation 45.2 fL (36.4-46.3); White Blood Count 19.34 K/uL (4.8-10.8)
[2022-03-02 19:51] LABS: INR 1.1 (0.9-1.1); Partial Thromboplastin Time 27.9 Seconds (21.0-31.0); Prothrombin Time 11.4 Seconds (9.0-12.0)
[2022-03-02 20:01] LABS: Albumin Globulin Ratio 1.5 (0.9-2); Albumin Level 4.2 gm/dl (3.4-5.0); BUN Creatinine Ratio 13.7 (10-20); Bilirubin,Total 2.1 mg/dl (0.2-1.0); Calcium 9.4 mg/dl (8.5-10.1); Est GFR (African American) 63.9 ml/min; Est GFR (Non-African American) 55.2 ml/min; Globulin 2.8 gm/dl (2.5-4.0); Magnesium 1.8 mg/dl (1.7-2.4); Potassium 3.9 mmol/L (3.5-5.1)
[2022-03-02 20:17] LABS: Troponin I High Sensitivity 11.5 pg/ml (0-20)
[2022-03-02] MEDS ORDERED: SODIUM CHLORIDE 0.9% 1000ML 1,000 ML IV ONE ×2 (20:25→22:34)
[2022-03-02 20:37] LABS: Appearance Urine Clear (Clear); Bacteria Urine Automated Negative (Negative); Blood Urine Negative (Negative); Color Urine Dark Yellow; Epithelial Cell Urine Auto 0-5 /lpf (0-5); Glucose Urine UA Negative (Negative); Ketones Urine Trace (Negative); Leukocyte Esterase Urine Trace (Negative); Nitrite Urine Positive (Negative); Protein Urine Negative (Negative); RBC Urine Automated 0-4 /hpf (0-4); Specific Gravity Urine 1.022 (1.000-1.030); Urobilinogen Urine Negative (Negative); pH Urine 5.5 (4.5-7.5)
[2022-03-02 20:47] LABS: Bilirubin Urine 1+ (Negative)
[2022-03-02] MEDS ORDERED: VANCOMYCIN HCL 1,750 MG in SODIUM CHLORIDE 0.9% 500 ML IV ONE (20:52)
[2022-03-02] MEDS ORDERED: VANCOMYCIN CONSULT ACTIVE PRN (20:52)
[2022-03-02] MEDS ORDERED: PIPERACILLIN/TAZOBACTAM 4.5 GM/120 ML BAG IV ONE (20:52)
[2022-03-02 21:10] LABS: Influenza A virus by PCR Negative (Neg); Influenza B virus by PCR Negative (Neg); RSV by PCR Negative (Neg); SARS CoV2 RNA(COVID-19) InHosp NEGATIVE (Negative)
[2022-03-02] MEDS ORDERED: OPTIRAY 320 125ml IV ONE (21:21)
--- NOTE | 2022-03-02 22:02 | History & Physical Report ---
Date of Service March 02, 2022 Assessment & Plan (1) Sepsis: Plan: Yassine Falk is a 71yo male with PMHx significant HTN, HLD, hypothyroidism, depression, h/o MSSA bacteremia (2018), and h/o of left TKA on 02/[address] [facility] ED on 03/02 fever/chills and generalized weakness x1 day. Sepsis, suspected urinary vs skin/joint source SIRS 4/4, qSOFA 2/3. UA positive nitrite/LE with possible urinary source, although no reported urinary symptoms. L knee (s/p L TKA on 02/18) with erythema and possibly purulent discharge, and with soft tissue swelling and joint effusion on XR - possible source as well. - Procal 5.22, Lactate 1.3 - s/p Vanco x1, will continue with Daptomycin - s/p Zosyn - will continue this for now - s/p 3L NSS boluses in ED - continue with LR @125cc/hr - ordered CT left knee w/ contrast to further evaluate for deep tissue/joint infection - blood cx taken before abx started - adjust abx as necessary pending results - consider Ortho consultation pending CT results S/p Left TKA On 02/[address] Sullivan. Had been doing well post-operatively. - eval for deep tissue/joint infection as stated above - PRN graded pain regimen: Tylenol 650mg PO Q6H; Oxycodone 5mg PO Q6H; Dilaudid 0.5mg IV Q6H - continue Aspirin 81mg PO BID for DVT ppx Hyperbilirubinemia Tbili 2.1, suspect due to hypovolemia/sepsis. No abdominal pain; low suspicion of biliary obstruction. - trend in AM Ascending Aortic Aneurysm Incidental finding on CTA chest. - recommend US vs CT f/u in 6-12 months - defer to PCP for scheduling this Chronic Medical Problems HTN: hold Losartan due to hypotension HLD: continue Atorvastatin Depression: continue Bupropion Peripheral Neuropathy: continue Duloxetine GERD: Protonix per hospital formulary BPH: continue Flomax Hypothyroidism: continue Synthroid FEN/GI: regular diet, LR @125cc/hr DVT Prophylaxis: Aspirin BID Code Status: full code Disposition: PCU (2) UTI (urinary tract infection): (3) Status post total left knee replacement: (4) Foot deformity: (5) Hypothyroid: (6) Hyperlipidemia: (7) Peripheral neuropathy: (8) Depression: (9) Hyperbilirubinemia: (10) Ascending aortic aneurysm: History of Present Illness Chief Complaint: fever Primary Care Provider: Cole Dobbins Yassine Falk is a 71yo male with PMHx significant HTN, HLD, hypothyroidism, depression, h/o MSSA bacteremia (2018), and h/o of left TKA on 02/[address] [facility] ED on 03/02 fever/chills and generalized weakness x1 day. Of note patient had total LKA by Dr. Sullivan on 02/18; does report mild redness around his surgical incision as well as occasional brown discharge from the incision and mild swelling but he has not experienced any warmth or pain and has been able to participate in PT without issues. He denies runny nose, cough, chest pain, SOB, N/V, abdominal pain, diarrhea or rash. He does report significant neuropathy of feet 2/2 to previous bunion surgeries and revisions. Did have MSSA bacteremia in 2018 due to presumed skin source - had a non-healing ulcer of his left foot at that time. However patient denies any ulcers, bleeding or discharge of his feet currently. In the ED patient was hypotensive in 80s/60s, tachycardic 120s and febrile 38.2C. Satting well on room air. Labs significant for WBC 19.34 (neutrophilic predominance and L shift) and Hgb 11.5 (~baseline). Procalcitonin 5.22, lactate 1.3. Tbili 2.1, ALP 190. UA positive for nitrites and trace LE. COVID/flu/RSV negative. CXR without acute cardiopulmonary process. L knee XR with moderate to large knee effusion with anterior soft tissue swelling, s/p left TKA with intact hardware. CTA chest w/o PE (but incidentally showing 4.1cm ascending aortic aneurysm) Patient was given 1 dose of Cefepime and then started on Vanco/Zosyn. Was also given Tylenol 1g IV x1 and 3L NSS boluses, after which BP improved to 100/70 and HR improved to 90s. Allergies Allergy/AdvReac Type Severity Reaction Status Date / Time No Known Allergies Allergy Verified 03/02/22 20:15 Home Medications Medication Instructions Recorded Confirmed Type atorvastatin 20 mg tablet 20 mg PO HS 09/21/18 03/02/22 History ascorbic acid (vitamin C) 1,000 mg 1 g PO QAM 05/21/20 03/02/22 History tablet (Vitamin C) cholecalciferol (vitamin D3) 25 1,000 mcg PO QAM 05/21/20 03/02/22 History mcg (1,000 unit) tablet (Vitamin D3) levothyroxine 125 mcg tablet 125 mcg PO QAM 05/21/20 03/02/22 History srjwwaliuzkz-saxhgmvd-xtlqqy tablet 1 tab PO QAM 05/21/20 03/02/22 History omega-3 fatty acids 1,000 mg PO QAM 05/21/20 03/02/22 History bupropion HCl 150 mg 24 hr tablet, 150 mg PO QAM 12/10/21 03/02/22 History extended release coenzyme Q10 100 mg capsule 200 mg PO HS 12/10/21 03/02/22 History (CoQ-10) omeprazole 20 mg tablet,delayed 20 mg PO HS 12/10/21 03/02/22 History release duloxetine 60 mg capsule,delayed 60 mg PO QAM 01/19/22 03/02/22 History release (Cymbalta) acetaminophen 500 mg capsule 1,000 mg PO TID 30 Days #180 cap 02/16/22 03/02/22 Rx aspirin 81 mg tablet,delayed 81 mg PO BID 45 Days #90 tab 02/16/22 03/02/22 Rx release (Aspirin Low Dose) ondansetron HCl 4 mg tablet 4 mg PO Q6 PRN #30 tab 02/16/22 03/02/22 Rx sennosides 8.6 mg-docusate sodium 1 tab-cap PO DAILY #14 tab 02/16/22 03/02/22 Rx 50 mg tablet (Senokot-S) tamsulosin 0.4 mg capsule (Flomax) 0.4 mg PO DAILY #7 cap 02/16/22 03/02/22 Rx losartan 25 mg tablet (Cozaar) 25 mg PO DAILY 02/18/22 03/02/22 History oxycodone 5 mg tablet 5 - 10 mg PO Q6 PRN #40 tab 03/01/22 03/02/22 Rx amino acids (Amino Acid) 2 cap PO .TID UD 03/02/22 03/02/22 History cephalexin 500 mg capsule 500 mg PO TID 10 Days #30 cap 03/02/22 03/02/22 Rx Past Med/Surg History Medical History (Updated 03/02/22 @ 22:52 by Leighton Oconnor MD) Ascending aortic aneurysm Chronic back pain Degenerative disc disease GERD (gastroesophageal reflux disease) Well controlled and stable Hx MRSA infection ~2011 in a foot ulcer. No issues since that time Hyperlipidemia On Lipitor Hypothyroid Lumbar discitis 2018. 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 History of bunionectomy of left great toe History of bunionectomy of right great toe History of cataract surgery (~2011) bilateral History of colonoscopy History of esophagogastroduodenoscopy (EGD) S/P debridement multiple on bilateral feet. S/P PICC central line placement (~2018) Family History Father Myocardial infarction Mother Heart disease Other Cancer Hypertension Lung disease Social History Smoking Status: Never smoker Second Hand Exposure: Yes (parents smoked); Hx Alcohol Use: Yes Alcohol type: beer Hx Substance Use: No Preferred Language: Swedish Communication Ability: Effective Rigging Man Required: No Beliefs That Will Affect Care: None Current Living Situation: Spouse Feels Safe at Home: Yes Assistive Devices: Walker Review of Systems Review of Systems: All systems reviewed & are unremarkable except as noted in HPI & below Physical Exam Physical Exam: General: A&Ox3. NAD. Cooperative. HEENT: Atraumatic, normocephalic. Pulm: CTAB A&P. -wheezes, -rales, -rhonchi. Symmetrical chest rise. No increase work of breathing. No respiratory distress. Cardiac: RRR, -mrg. Radial pulses intact and symmetrical. No LE edema. Abdominal: soft, non-tender, non-distended, BS x 4 Left knee: surgical incision with jhony intact and no signs of dehiscence. There is some surrounding warmth and erythema and minimal tenderness to palpation. No visible discharge. No red streaking. Feet: pvpofms-qf-he sensation in feet. Blister on left 1st digit (plantar surface) but no open ulceration and no surrounding erythema. Results & Data Results & Data ([facility]) Vital Signs (Past 12 Hours) Vital Signs Temp Pulse Pulse Resp BP BP Pulse Ox 03/02/22 21:33 36.9 C 93 H 24 100/70 97 03/02/22 21:00 91 H 19 104/73 97 03/02/22 20:45 89 17 103/70 90 03/02/22 20:31 94 H 16 93/68 L 96 03/02/22 20:30 95 H 22 93/68 L 97 03/02/22 20:17 95 H 18 93/65 L 95 03/02/22 20:15 93 H 24 94/66 L 03/02/22 20:03 94 H 110/83 03/02/22 20:00 99 H 14 110/83 03/02/22 19:56 37.7 C H 92 H 16 104/66 95 03/02/22 19:53 98 H 15 104/66 98 03/02/22 19:45 98 H 17 87/68 L 92 03/02/22 19:30 101 H 10 L 85/61 L 92 03/02/22 19:27 101 H 18 91 03/02/22 19:18 103 H 106 H 20 103/68 93 03/02/22 18:47 38.2 C H 122 H 20 91/64 L 94 Resident Activity Tracking Resident Involvement: Resident Care Provided Care Provided: Adult Hospital Medicine (1) Sepsis Sepsis acute organ dysfunction status: unspecified Sepsis type: sepsis due to unspecified organism Qualified Code(s): A41.9 - Sepsis, unspecified organism (2) Foot deformity Laterality: unspecified laterality Qualified Code(s): M21.969 - Unspecified acquired deformity of unspecified lower leg (3) Hypothyroid Hypothyroidism type: unspecified Qualified Code(s): E03.9 - Hypothyroidism, unspecified (4) Hyperlipidemia Hyperlipidemia type: unspecified Qualified Code(s): E78.5 - Hyperlipidemia, unspecified (5) Peripheral neuropathy Peripheral neuropathy type: mononeuropathy, unspecified Qualified Code(s): G58.9 - Mononeuropathy, unspecified (6) Depression Depression Type: major depressive disorder Major depression recurrence: unspecified whether recurrent Active/Remission status: remission status unspecified Qualified Code(s): F32.9 - Major depressive disorder, single episode, unspecified
[2022-03-02] MEDS ORDERED: ONDANSETRON INJ 2 MG/ML 2 ML VIAL IV PRN (22:32)
[2022-03-02] MEDS ORDERED: POLYETHYLENE (MIRALAX) 17 GM PACK PO PRN (22:32)
[2022-03-02] MEDS ORDERED: DAPTOmycin 450 MG in SYRINGE 0 ML IV ONE (22:32)
[2022-03-02] MEDS ORDERED: HYDROmorphone INJ 0.5 MG/0.5 ML SYR IV PRN (22:32)
[2022-03-02] MEDS: LACTATED RINGER'S 1,000 ML IV SCH (22:55)
[2022-03-02] MEDS ORDERED: NON-FORMULARY MEDICATION (Amino Acids [Amino Acid] Capsule) PO SCH (23:41)
[2022-03-03] MEDS: oxyCODONE HCL IR 5 MG TAB (IMMEDIATE RELEASE) PO PRN ×4 (01:12→19:59)
[2022-03-03] MEDS: ACETAMINOPHEN 325 MG TAB PO PRN ×2 (03:51→19:52)
[2022-03-03] MEDS: PIPERACILLIN/TAZOBACTAM 3.375 GM in DEXTROSE 5% 100 ML IV SCH ×3 (03:51→20:04)
[2022-03-03] MEDS: DAPTOmycin 450 MG in SYRINGE 0 ML IV SCH (04:59)
[2022-03-03] MEDS ORDERED: PIPERACILLIN/TAZOBACTAM 3.375 GM in DEXTROSE 5% 100 ML IV SCH (05:00)
[2022-03-03] MEDS: LACTATED RINGER'S 1,000 ML IV SCH ×3 (05:51→22:45)
[2022-03-03] MEDS: LEVOTHYROXINE SODIUM 125 MCG TABLET PO SCH (05:51)
--- NOTE | 2022-03-03 07:16 | CT Scan Report ---
CT OF THE LEFT KNEE WITHOUT CONTRAST CLINICAL HISTORY: Increasing left knee pain. Recent left knee surgery. Evaluate for deep tissue/joint infection. COMPARISON STUDY: Left knee radiographs March 02, 2022. TECHNIQUE: Axial images of the left knee were obtained without intravenous contrast. Sagittal and cor onal reconstructions were viewed. Automated exposure control was utilized for the study. A dose lowe ring technique was utilized adhering to the principles of ALARA. FINDINGS: Alignment of the total left knee arthroplasty is anatomic. There is no periprosthetic fract ure. Hardware is intact. There are skin jhony. A large left knee joint effusion is noted. This has areas of increased attenuation. This favors a hemarthrosis. No gas within the joint space is present. There is no soft tissue gas. Extensive soft tissue edema is greatest anteriorly. No well-defined flu id collections are identified on this unenhanced examination. No suspicious osseous lesions are noted . There are no unexpected radiopaque foreign bodies. IMPRESSION: 1. Status post total left knee arthroplasty. Hardware intact. No periprosthetic fracture. 2. Large complex left knee joint effusion which likely contains blood products. This may reflect [place] rthrosis. 3. Extensive soft tissue swelling, greatest anteriorly. No fluid collection identified on unenhanced exam. No soft tissue gas. ACT 112: Negative or not required by law. Electronically signed by: Remington Taylor M.D. 03/03/2022 7:15 AM
--- NOTE | 2022-03-03 07:23 | CT Scan Report ---
CT ANGIOGRAM OF THE CHEST CLINICAL HISTORY: Dyspnea. COMPARISON STUDY: Chest x-ray dated 03/02/2022. TECHNIQUE: Following the IV administration of 120 cc of Optiray 320, CT angiogram of the chest was pe rformed from the upper abdomen to the thoracic inlet utilizing the pulmonary embolus protocol. Images are reviewed in the axial, sagittal, and coronal planes. 3-D MIPS images are created and assessed. I V contrast was administered without complication. A dose lowering technique was utilized adhering to the principles of ALARA. CT DOSE: 488.62 mGy.cm FINDINGS: Thyroid: Imaged portions of the thyroid gland are normal in size and attenuation. Thoracic aorta: There is mild aneurysmal dilatation of the ascending thoracic aorta which measures up to 4.4 cm in diameter. The remainder of the thoracic aorta is normal in caliber comment the arch dem onstrates standard 3-vessel anatomy. No dissection is seen. Pulmonary vasculature: The pulmonary trunk is normal in caliber. There are no filling defects identif ied in main, lobar, or segmental pulmonary branches to suggest pulmonary embolus. Heart: The heart is mildly enlarged and without pericardial effusion. The coronary arteries are dense ly calcified. Lungs and pleural spaces: There is no lobar consolidation or pleural effusion. The trachea and centra l airways appear clear. Mild scarring/atelectasis is noted at this lung bases. There are [address] groundglass opacities in the right upper lobe seen on images #147 and #150. Mediastinum: There is no mediastinal lymphadenopathy. [place]: Clear. Axillae: There is no axillary lymphadenopathy. Upper abdomen: There is a small hiatal hernia. Partially visualized upper abdominal viscera is otherw ise within normal limits. Skeletal structures: No lytic or blastic bony lesions are seen. Degenerative change and hyperkyphosis is noted in the thoracic spine. Arthritic change is seen in the shoulders. IMPRESSION: 1. There is no evidence of pulmonary embolus in the main, lobar, or segmental pulmonary arteries. 2. There is no lobar consolidation or pleural effusion. 3. There are 2 subcentimeter groundglass opacities in the right upper lobe which may be on an inflamm atory basis. A 6 month follow-up chest CT is recommended to document resolution. 4. Mild cardiomegaly. 5. Advanced coronary artery calcification. 6. There is mild aneurysmal dilatation of the ascending thoracic aorta which measures up to 4.4 cm in diameter. 7. Additional findings as above. ACT 112: Negative or not required by law. Electronically signed by: Yousuf Nicholas M.D. 03/03/2022 7:21 AM
--- NOTE | 2022-03-03 07:58 | Progress Notes ---
CHIEF COMPLAINT: Confusion and decreased function after total knee replacement about 12 days out. HISTORY OF PRESENT ILLNESS: The patient is a A 71-year-old gentleman now about 12 days out from a left knee replacement. He has done pretty well postoperatively, but yesterday afternoon he started having some fevers and chills and some level of confusion. He came to the ER last night and was admitted by the medicine service. He has had a little bit of drainage from his knee, but nothing real recent. Some recent blood-tinged drainage if at all. Therapy has gone pretty well. He said he was feeling fine until yesterday. OBJECTIVE: VITAL SIGNS: Temperature 36.8. Vital signs are stable. GENERAL: Physical examination shows a pleasant middle-aged male. He is sitting up in bed. He is awake, alert, and oriented and appropriate. EXTREMITIES: Examination of the left leg reveals the incision to be healing. There is moderate diffuse swelling and some redness around the incision site. Knee alignment looks good. Moderate-sized knee effusion. He can do a straight leg raise. Range of motion is 0-90 degrees. There is no obvious instability. No active drainage. LABORATORY DATA: White cell count is 19.34. Hemoglobin 11.5, hematocrit 34.2. Electrolytes are stable. Urine does show positive nitrite and leukocyte esterase. Blood cultures are positive for gram-positive cocci. ASSESSMENT: A 71-year-old gentleman now about 12 days out from a knee replacement with a recent onset of fevers, chills, and declining medical status. It does look like he has got gram-positive cocci in his blood. His urine looks to be somewhat positive for bacteria and infection. His knee exam is pretty normal for a postoperative knee. His knee is functioning well. His effusion is pretty normal. He does have antibiotics in the cement. PLAN: At this point, he has made significant improvements even just overnight. He is on antibiotics, which are going to be necessary for the blood infection. We will keep an eye on his knee. I do not think we necessarily need to intervene at this point. We will continue to follow him. I do think this will likely get better with the antibiotics. He can weight bear as tolerated in the left leg. He should continue DVT prophylaxis. I strongly recommend MELISSA stockings and aspirin twice a day. Any orthopedic questions can be directed to me at [phone]. After further thought and positive blood cultures, I am going to aspirate his knee. Procedure: Left knee sterily prepped and aspirated for 50cc of blood. Sent off for analysis...cell count and culture. Looked like normal post-op bloody effusion, but will await culture results. Obviously needs on abx for blood infection. Job ID: [id number] MTDD
[2022-03-03] MEDS: ASCORBIC ACID 500 MG TAB PO SCH (08:26)
[2022-03-03] MEDS: ASPIRIN 81 MG ECTAB PO SCH ×2 (08:26→20:01)
[2022-03-03] MEDS: buPROPion XL 150 MG TABCR PO SCH (08:27)
[2022-03-03] MEDS: CHOLECALCIFEROL 1,000 UNITS 25 MCG TAB PO SCH (08:28)
[2022-03-03] MEDS: DULoxetine HCL 60 MG CAP PO SCH (08:29)
[2022-03-03] MEDS: DOCUSATE SODIUM/SENNA 50/8.6MG TAB PO SCH (08:29)
[2022-03-03] MEDS: OMEGA-3 (PURIFIED FISH OIL) 1 GM CAP PO SCH (08:30)
[2022-03-03] MEDS: CEROVITE ADV FORMULA TAB PO SCH (08:30)
[2022-03-03] MEDS: TAMSULOSIN HCL 0.4 MG CAP PO SCH (08:30)
[2022-03-03 08:50] LABS: Albumin Globulin Ratio 1.6 (0.9-2); Albumin Level 3.6 gm/dl (3.4-5.0); Bilirubin,Total 1.7 mg/dl (0.2-1.0); Calcium 8.5 mg/dl (8.5-10.1); Creatinine Clr Calc Pharmacy 62.6 ml/min; Est GFR (African American) 74.8 ml/min; Est GFR (Non-African American) 64.6 ml/min; Globulin 2.2 gm/dl (2.5-4.0); Magnesium 1.9 mg/dl (1.7-2.4); Total Protein 5.8 gm/dl (6.0-8.3)
[2022-03-03 09:07] LABS: Basophils # (auto) 0.02 K/uL (0-0.2); Basophils % (auto) 0.1 %; Eosinophils # (auto) 0.01 K/uL (0-0.5); Eosinophils % (auto) 0.1 %; Hematocrit (blood only) 30.6 % (42-52); Hemoglobin 10.1 g/dL (14.0-18.0); Immature Granulocytes % (auto) 0.5 %; Lymphocytes # (auto) 0.49 K/uL (1.2-3.4); Lymphocytes % (auto) 2.5 %; Mean Corpuscular Hemoglobin 28.9 pg (25-34); Mean Corpuscular Volume 87.4 fL (80-100); Mean Platelet Volume 9.1 fL (7.4-10.4); Monocytes # (auto) 0.43 K/uL (0.11-0.59); Monocytes % (auto) 2.2 %; Neutrophils # (auto) 18.94 K/uL (1.4-6.5); Neutrophils % (auto) 94.6 %; Platelet Count 212 K/uL (130-400); RDW Coefficient of Variation 15.2 % (11.5-14.5); RDW Standard Deviation 48.3 fL (36.4-46.3); White Blood Count 19.99 K/uL (4.8-10.8)
[2022-03-03 10:05] LABS: Appearance Synovial Fluid TURBID; Color Synovial Fluid RED; RBC Synovial Fluid (A) 212000 /uL; Source Synovial Fluid KNEE; WBC Synovial Fluid (A) 1995 /ul (0-200)
[2022-03-03 10:06] LABS: Mononuclear WBC Synovial 24.5 %; Polynuclear WBC Synovial 75.5 %
--- NOTE | 2022-03-03 15:55 | Hospitalist Progress Note ---
Date of Service March 03, 2022 Assessment & Plan (1) Sepsis: Plan: Robert Falk is a 71yo male with PMHx significant HTN, HLD, hypothyroidism, depression, h/o MSSA bacteremia (2018), and h/o of left TKA on 02/18 who presented to [facility] ED on 03/02 fever/chills and generalized weakness x1 day. Bacteremia with sepsis, suspected urinary vs skin/joint source - SIRS 4/4, qSOFA 2/3. - Procal 5.22, Lactate 1.3 on admission - Possible sources include urine (UA w/ + nitrite and + LE) and skin (left knee s/p TKA on 02/18) - Urine cx pending - Blood cx w/ gram + cocci in chains; awaiting speciation and sensitivities - s/p Vanco x1 on admission; continue w/ Daptomycin - Continue Zosyn as started on admission - s/p IVF resuscitation with 3L NSS boluses in ED - Continue with LR @125cc/hr - L knee CT 03/02: Status post total left knee arthroplasty. Hardware intact. No periprosthetic fracture. Large complex left knee joint effusion which likely contains blood products. This may reflect hemarthrosis. Extensive soft tissue swelling, greatest anteriorly. No fluid collection identified on unenhanced exam. No soft tissue gas. - Ortho consulted: continue abx. Knee aspirated for 50cc of blood; sent off for analysis. S/p Left TKA On 02/[address] Sullivan. Had been doing well post-operatively. - eval for deep tissue/joint infection as stated above - PRN graded pain regimen: Tylenol 650mg PO Q6H; Oxycodone 5mg PO Q6H; Dilaudid 0.5mg IV Q6H - continue Aspirin 81mg PO BID for DVT ppx Hyperbilirubinemia Tbili 2.1, suspect due to hypovolemia/sepsis. No abdominal pain; low suspicion of biliary obstruction. - trend in AM Ascending Aortic Aneurysm Incidental finding on CTA chest. - recommend US vs CT f/u in 6-12 months - defer to PCP for scheduling this Chronic Medical Problems HTN: hold Losartan due to hypotension HLD: continue Atorvastatin Depression: continue Bupropion Peripheral Neuropathy: continue Duloxetine GERD: Protonix per hospital formulary BPH: continue Flomax Hypothyroidism: continue Synthroid FEN/GI: regular diet, LR @125cc/hr DVT Prophylaxis: Aspirin BID Code Status: full code Disposition: PCU (2) UTI (urinary tract infection): (3) Status post total left knee replacement: (4) Foot deformity: (5) Hypothyroid: (6) Hyperlipidemia: (7) Peripheral neuropathy: (8) Depression: (9) Hyperbilirubinemia: (10) Ascending aortic aneurysm: Admission and Anticipated Discharge Date Admission Date: March 02, 2022 Supervising Physician Co-Signing Physician Notes Resident Physician Supervision Note: I independently interviewed and examined the patient and verified the forte history and physical, reviewed labs and image studies and agree with resident Dr. Garcia findings and care plan. Subjective Patient seen and evaluated at bedside this morning. No acute events overnight. He is resting comfortably in bed. No acute complaints or concerns. Denies CP, SOB, cough, abd pain, nausea, vomiting, diarrhea, OLSEN, lightheadedness, dizziness, or vision changes. Tolerating po intake. Review of Systems Review of Systems: See HPI Physical Exam Physical Exam: GENERAL: No acute distress. Well developed and well nourished. Vital signs reviewed. EYES: EOMI. Anicteric sclerae. HENT: Moist mucous membranes. RESPIRATORY: Clear to auscultation bilaterally. No wheezing, rales, or rhonchi. CARDIOVASCULAR: Regular rate and rhythm. No murmurs. ABDOMEN: Soft, non-tender and non-distended. Normal bowel sounds. EXTREMITIES: 1+ edema to LLE which patient states is unchanged. Midline incision over left knee with jhony in place; incision is clean/dry/intact with no active bleeding or discharge. SKIN: Warm, dry. Blister on left 1st toe, plantar surface, with closed central area of ulceration w/o discharge, no surrounding erythema. 2 blisters on right foot, plantar aspect, ball of foot with closed central area of ulceration w/o discharge, bleeding, or erythema. NEUROLOGIC: A/O x3. Normal speech. No focal neurological deficits. PSYCHIATRIC: Cooperative. Appropriate mood and affect. Results & Data Results & Data ([facility]) Vital Signs (Past 12 Hours) Vital Signs Temp Pulse Pulse Resp BP Pulse Ox 03/03/22 15:01 90 03/03/22 11:19 37.3 C 76 20 110/71 96 03/03/22 10:04 75 03/03/22 08:01 37.3 C 83 20 110/70 96 03/03/22 06:02 36.8 C 03/03/22 05:01 37.9 C H 80 Laboratory Results 03/03/22 03/03/22 03/03/22 Range/Units 08:07 08:07 08:00 WBC 19.99 H (4.8-10.8) K/uL RBC 3.50 L (4.7-6.1) M/uL Hgb 10.1 L (14.0-18.0) g/dL Hct 30.6 L (42-52) % MCV 87.4 (80-100) fL MCH 28.9 (25-34) pg MCHC 33.0 (32-36) g/dL RDW Std Deviation 48.3 H (36.4-46.3) fL RDW Coeff of [place] 15.2 H (11.5-14.5) % Plt Count 212 (130-400) K/uL MPV 9.1 (7.4-10.4) fL Immature Gran % (Auto) 0.5 % Neut % (Auto) 94.6 % Lymph % (Auto) 2.5 % [place] % (Auto) 2.2 % Eos % (Auto) 0.1 % Baso % (Auto) 0.1 % Neut # (Auto) 18.94 H (1.4-6.5) K/uL Lymph # (Auto) 0.49 L (1.2-3.4) K/uL [place] # (Auto) 0.43 (0.11-0.59) K/uL Eos # (Auto) 0.01 (0-0.5) K/uL Baso # (Auto) 0.02 (0-0.2) K/uL Immature Gran # (Auto) 0.10 H (0.00-0.02) K/uL PT (9.0-12.0) Seconds INR (0.9-1.1) APTT (21.0-31.0) Seconds PTT Ratio Sodium 135 L (136-145) mmol/L Potassium 4.0 (3.5-5.1) mmol/L Chloride 105 (98-107) mmol/L Carbon Dioxide 24 (21-32) mmol/L Anion Gap 6 (3-11) BUN 15 (6-23) mg/dl Creatinine 1.15 (0.6-1.4) mg/dl Est Cr Clr Drug Dosing 62.6 ml/min Est GFR ( Amer) 74.8 ml/min Est GFR (Non-Af Amer) 64.6 ml/min BUN/Creatinine Ratio 13.0 (10-20) Glucose 130 H (70-99(Fasting)) mg/dl Lactate (0.4-2.0) mmol/L Calcium 8.5 (8.5-10.1) mg/dl Magnesium 1.9 (1.7-2.4) mg/dl Total Bilirubin 1.7 H (0.2-1.0) mg/dl AST 25 (13-39) U/L ALT 30 (7-52) U/L Alkaline Phosphatase 137 H (34-104) U/L Troponin I High Sens (0-20) pg/ml Total Protein 5.8 L (6.0-8.3) gm/dl Albumin 3.6 (3.4-5.0) gm/dl Globulin 2.2 L (2.5-4.0) gm/dl Albumin/Globulin Ratio 1.6 (0.9-2) Procalcitonin (0-0.5) ng/ml Urine Color Urine Appearance (Clear) Urine pH (4.5-7.5) Ur Specific We[place] (1.000-1.030) Urine Protein (Negative) Urine Glucose (UA) (Negative) Urine Ketones (Negative) Urine Blood (Negative) Urine Nitrite (Negative) Urine Bilirubin (Negative) Urine Urobilinogen (Negative) Ur Leukocyte Esterase (Negative) Urine WBC (Auto) (0-5) /hpf Urine RBC (Auto) (0-4) /hpf U Hyaline Cast (Auto) (0-5) /lpf U Epithel Cells (Auto) (0-5) /lpf Urine Bacteria (Auto) (Negative) Fluid Comment Synovial Source KNEE Synovial Color RED Synovial Appearance TURBID Synovial WBC 1995 H (0-200) /ul Synovial RBC 525455 /uL Synovial Polynuclear % 75.5 % Synovial Mononuclear % 24.5 % Nasal Screen MRSA (PCR) (Negative) SARS-CoV-2 (PCR) (Negative) Influenza Type A (PCR) (Neg) Influenza Type B (PCR) (Neg) RSV (RT-PCR) (Neg) 03/03/22 03/02/22 03/02/22 Range/Units 06:00 20:08 19:29 WBC (4.8-10.8) K/uL RBC (4.7-6.1) M/uL Hgb (14.0-18.0) g/dL Hct (42-52) % MCV (80-100) fL MCH (25-34) pg MCHC (32-36) g/dL RDW Std Deviation (36.4-46.3) fL RDW Coeff of [place] (11.5-14.5) % Plt Count (130-400) K/uL MPV (7.4-10.4) fL Immature Gran % (Auto) % Neut % (Auto) % Lymph % (Auto) % [place] % (Auto) % Eos % (Auto) % Baso % (Auto) % Neut # (Auto) (1.4-6.5) K/uL Lymph # (Auto) (1.2-3.4) K/uL [place] # (Auto) (0.11-0.59) K/uL Eos # (Auto) (0-0.5) K/uL Baso # (Auto) (0-0.2) K/uL Immature Gran # (Auto) (0.00-0.02) K/uL PT (9.0-12.0) Seconds INR (0.9-1.1) APTT (21.0-31.0) Seconds PTT Ratio Sodium (136-145) mmol/L Potassium (3.5-5.1) mmol/L Chloride (98-107) mmol/L Carbon Dioxide (21-32) mmol/L Anion Gap (3-11) BUN (6-23) mg/dl Creatinine (0.6-1.4) mg/dl Est Cr Clr Drug Dosing ml/min Est GFR ( Amer) ml/min Est GFR (Non-Af Amer) ml/min BUN/Creatinine Ratio (10-20) Glucose (70-99(Fasting)) mg/dl Lactate (0.4-2.0) mmol/L Calcium (8.5-10.1) mg/dl Magnesium (1.7-2.4) mg/dl Total Bilirubin (0.2-1.0) mg/dl AST (13-39) U/L ALT (7-52) U/L Alkaline Phosphatase (34-104) U/L Troponin I High Sens (0-20) pg/ml Total Protein (6.0-8.3) gm/dl Albumin (3.4-5.0) gm/dl Globulin (2.5-4.0) gm/dl Albumin/Globulin Ratio (0.9-2) Procalcitonin (0-0.5) ng/ml Urine Color Dark Yellow Urine Appearance Clear (Clear) Urine pH 5.5 (4.5-7.5) Ur Specific [place] 1.022 (1.000-1.030) Urine Protein Negative (Negative) Urine Glucose (UA) Negative (Negative) Urine Ketones Trace H (Negative) Urine Blood Negative (Negative) Urine Nitrite Positive A (Negative) Urine Bilirubin 1+ H (Negative) Urine Urobilinogen Negative (Negative) Ur Leukocyte Esterase Trace H (Negative) Urine WBC (Auto) 1-5 (0-5) /hpf Urine RBC (Auto) 0-4 (0-4) /hpf U Hyaline Cast (Auto) 1-5 (0-5) /lpf U Epithel Cells (Auto) 0-5 (0-5) /lpf Urine Bacteria (Auto) Negative (Negative) Fluid Comment Synovial Source Synovial Color Synovial Appearance Synovial WBC (0-200) /ul Synovial RBC /uL Synovial Polynuclear % % Synovial Mononuclear % % Nasal Screen MRSA (PCR) Negative (Negative) SARS-CoV-2 (PCR) NEGATIVE (Negative) Influenza Type A (PCR) Negative (Neg) Influenza Type B (PCR) Negative (Neg) RSV (RT-PCR) Negative (Neg) 03/02/22 03/02/22 03/02/22 Range/Units 19:10 19:10 19:10 WBC (4.8-10.8) K/uL RBC (4.7-6.1) M/uL Hgb (14.0-18.0) g/dL Hct (42-52) % MCV (80-100) fL MCH (25-34) pg MCHC (32-36) g/dL RDW Std Deviation (36.4-46.3) fL RDW Coeff of [place] (11.5-14.5) % Plt Count (130-400) K/uL MPV (7.4-10.4) fL Immature Gran % (Auto) % Neut % (Auto) % Lymph % (Auto) % [place] % (Auto) % Eos % (Auto) % Baso % (Auto) % Neut # (Auto) (1.4-6.5) K/uL Lymph # (Auto) (1.2-3.4) K/uL [place] # (Auto) (0.11-0.59) K/uL Eos # (Auto) (0-0.5) K/uL Baso # (Auto) (0-0.2) K/uL Immature Gran # (Auto) (0.00-0.02) K/uL PT 11.4 (9.0-12.0) Seconds INR 1.1 (0.9-1.1) APTT 27.9 (21.0-31.0) Seconds PTT Ratio 1.0 Sodium 134 L (136-145) mmol/L Potassium 3.9 (3.5-5.1) mmol/L Chloride 102 (98-107) mmol/L Carbon Dioxide 22 (21-32) mmol/L Anion Gap 10 (3-11) BUN 18 (6-23) mg/dl Creatinine 1.31 (0.6-1.4) mg/dl Est Cr Clr Drug Dosing 55.0 ml/min Est GFR ( Amer) 63.9 ml/min Est GFR (Non-Af Amer) 55.2 ml/min BUN/Creatinine Ratio 13.7 (10-20) Glucose 108 H (70-99(Fasting)) mg/dl Lactate 1.3 (0.4-2.0) mmol/L Calcium 9.4 (8.5-10.1) mg/dl Magnesium 1.8 (1.7-2.4) mg/dl Total Bilirubin 2.1 H (0.2-1.0) mg/dl AST 32 (13-39) U/L ALT 39 (7-52) U/L Alkaline Phosphatase 190 H (34-104) U/L Troponin I High Sens 11.5 (0-20) pg/ml Total Protein 7.0 (6.0-8.3) gm/dl Albumin 4.2 (3.4-5.0) gm/dl Globulin 2.8 (2.5-4.0) gm/dl Albumin/Globulin Ratio 1.5 (0.9-2) Procalcitonin (0-0.5) ng/ml Urine Color Urine Appearance (Clear) Urine pH (4.5-7.5) Ur Specific [place] (1.000-1.030) Urine Protein (Negative) Urine Glucose (UA) (Negative) Urine Ketones (Negative) Urine Blood (Negative) Urine Nitrite (Negative) Urine Bilirubin (Negative) Urine Urobilinogen (Negative) Ur Leukocyte Esterase (Negative) Urine WBC (Auto) (0-5) /hpf Urine RBC (Auto) (0-4) /hpf U Hyaline Cast (Auto) (0-5) /lpf U Epithel Cells (Auto) (0-5) /lpf Urine Bacteria (Auto) (Negative) Fluid Comment Synovial Source Synovial Color Synovial Appearance Synovial WBC (0-200) /ul Synovial RBC /uL Synovial Polynuclear % % Synovial Mononuclear % % Nasal Screen MRSA (PCR) (Negative) SARS-CoV-2 (PCR) (Negative) Influenza Type A (PCR) (Neg) Influenza Type B (PCR) (Neg) RSV (RT-PCR) (Neg) 03/02/22 03/02/22 Range/Units 19:10 19:10 WBC 19.34 H (4.8-10.8) K/uL RBC 4.00 L (4.7-6.1) M/uL Hgb 11.5 L (14.0-18.0) g/dL Hct 34.2 L (42-52) % MCV 85.5 (80-100) fL MCH 28.8 (25-34) pg MCHC 33.6 (32-36) g/dL RDW Std Deviation 45.2 (36.4-46.3) fL RDW Coeff of [place] 14.5 (11.5-14.5) % Plt Count 223 (130-400) K/uL MPV 9.1 (7.4-10.4) fL Immature Gran % (Auto) 0.4 % Neut % (Auto) 92.8 % Lymph % (Auto) 2.1 % [place] % (Auto) 4.4 % Eos % (Auto) 0.2 % Baso % (Auto) 0.1 % Neut # (Auto) 17.96 H (1.4-6.5) K/uL Lymph # (Auto) 0.40 L (1.2-3.4) K/uL [place] # (Auto) 0.85 H (0.11-0.59) K/uL Eos # (Auto) 0.04 (0-0.5) K/uL Baso # (Auto) 0.01 (0-0.2) K/uL Immature Gran # (Auto) 0.08 H (0.00-0.02) K/uL PT (9.0-12.0) Seconds INR (0.9-1.1) APTT (21.0-31.0) Seconds PTT Ratio Sodium (136-145) mmol/L Potassium (3.5-5.1) mmol/L Chloride (98-107) mmol/L Carbon Dioxide (21-32) mmol/L Anion Gap (3-11) BUN (6-23) mg/dl Creatinine (0.6-1.4) mg/dl Est Cr Clr Drug Dosing ml/min Est GFR ( Amer) ml/min Est GFR (Non-Af Amer) ml/min BUN/Creatinine Ratio (10-20) Glucose (70-99(Fasting)) mg/dl Lactate (0.4-2.0) mmol/L Calcium (8.5-10.1) mg/dl Magnesium (1.7-2.4) mg/dl Total Bilirubin (0.2-1.0) mg/dl AST (13-39) U/L ALT (7-52) U/L Alkaline Phosphatase (34-104) U/L Troponin I High Sens (0-20) pg/ml Total Protein (6.0-8.3) gm/dl Albumin (3.4-5.0) gm/dl Globulin (2.5-4.0) gm/dl Albumin/Globulin Ratio (0.9-2) Procalcitonin 5.22 H (0-0.5) ng/ml Urine Color Urine Appearance (Clear) Urine pH (4.5-7.5) Ur Specific [place] (1.000-1.030) Urine Protein (Negative) Urine Glucose (UA) (Negative) Urine Ketones (Negative) Urine Blood (Negative) Urine Nitrite (Negative) Urine Bilirubin (Negative) Urine Urobilinogen (Negative) Ur Leukocyte Esterase (Negative) Urine WBC (Auto) (0-5) /hpf Urine RBC (Auto) (0-4) /hpf U Hyaline Cast (Auto) (0-5) /lpf U Epithel Cells (Auto) (0-5) /lpf Urine Bacteria (Auto) (Negative) Fluid Comment Synovial Source Synovial Color Synovial Appearance Synovial WBC (0-200) /ul Synovial RBC /uL Synovial Polynuclear % % Synovial Mononuclear % % Nasal Screen MRSA (PCR) (Negative) SARS-CoV-2 (PCR) (Negative) Influenza Type A (PCR) (Neg) Influenza Type B (PCR) (Neg) RSV (RT-PCR) (Neg) Diagnostic Findings [place], [place] [phone] CT Scan Report Patient:ROBERT FALK Admit Date:03/02/22 MR#:[id number] Address1:[address] [place] [address] Acct ID:[id number] Address2: Date:1950 [facility] Zip:[place] [address] Age:71 Location: Sex: Room/Bed:[facility] Att Phy:Makayla Balderrama MD Diagnosis:SEPSIS Dee Dee Phy:Cole Dobbins M.D. Service Date:03/02/22 Fam Phy:Fredo Sullivan MD Interpreting Phy:Remington Taylor [facility] Phy:Leighton Oconnor MD Ordering Phy:Leighton Oconnor MD cc: ~ CT OF THE LEFT KNEE WITHOUT CONTRAST CLINICAL HISTORY: Increasing left knee pain. Recent left knee surgery. Evaluate for deep tissue/joint infection. COMPARISON STUDY: Left knee radiographs March 02, 2022. TECHNIQUE: Axial images of the left knee were obtained without intravenous contrast. Sagittal and coronal reconstructions were viewed. Automated exposure control was utilized for the study. A dose lowering technique was utilized adhering to the principles of ALARA. FINDINGS: Alignment of the total left knee arthroplasty is anatomic. There is no periprosthetic fracture. Hardware is intact. There are skin jhony. A large left knee joint effusion is noted. This has areas of increased attenuation. This favors a hemarthrosis. No gas within the joint space is present. There is no soft tissue gas. Extensive soft tissue edema is greatest anteriorly. No well- defined fluid collections are identified on this unenhanced examination. No jerrica picious osseous lesions are noted. There are no unexpected radiopaque foreign bodies. IMPRESSION: 1. Status post total left knee arthroplasty. Hardware intact. No periprosthetic fracture. 2. Large complex left knee joint effusion which likely contains blood products. This may reflect hemarthrosis. 3. Extensive soft tissue swelling, greatest anteriorly. No fluid collection identified on unenhanced exam. No soft tissue gas. ACT 112: Negative or not required by law. Electronically signed by: Remington Taylor M.D. 03/03/2022 7:15 AM Dictated:03/03/22709 Transcribed: 03/03/22710 [place], [place] [phone] CT Scan Report Patient:ROBERT FALK Admit Date:03/02/22 MR#:[id number] Address1:[address] [place] [address] Acct ID:[id number] Address2: Date:1950 [facility] Zip:[place] [address] Age:71 Location: Sex:M Room/Bed:[facility] Att Phy:Makayla Balderrama MD Diagnosis:SEPSIS Dee Dee Phy:Cole Dobbins M.D. Service Date:03/02/22 Fam Phy:Fredo Sullivan MD Interpreting Phy:Yousuf Nicholas MDAdmit Phy:Leighton Oconnor MD Ordering Phy:Jorge L Hartmann MD cc: ~ CT ANGIOGRAM OF THE CHEST CLINICAL HISTORY: Dyspnea. COMPARISON STUDY: Chest x-ray dated 03/02/2022. TECHNIQUE: Following the IV administration of 120 cc of Optiray 320, CT angiogram of the chest was performed from the upper abdomen to the thoracic inlet utilizing the pulmonary embolus protocol. Images are reviewed in the axial, sagittal, and coronal planes. 3-D MIPS images are created and assessed. IV contrast was administered without complication. A dose lowering technique was utilized adhering to the principles of ALARA. CT DOSE: 488.62 mGy.cm FINDINGS: Thyroid: Imaged portions of the thyroid gland are normal in size and attenuation. Thoracic aorta: There is mild aneurysmal dilatation of the ascending thoracic aorta which measures up to 4.4 cm in diameter. The remainder of the thoracic aorta is normal in caliber comment the arch demonstrates standard 3-vessel anatomy. No dissection is seen. Pulmonary vasculature: The pulmonary trunk is normal in caliber. There are no filling defects identified in main, lobar, or segmental pulmonary branches to suggest pulmonary embolus. Heart: The heart is mildly enlarged and without pericardial effusion. The coronary arteries are densely calcified. Lungs and pleural spaces: There is no lobar consolidation or pleural effusion. The trachea and central airways appear clear. Mild scarring/atelectasis is noted at this lung bases. There are [address] groundglass opacities in the right upper lobe seen on images #147 and #150. Mediastinum: There is no mediastinal lymphadenopathy. [place]: Clear. Axillae: There is no axillary lymphadenopathy. Upper abdomen: There is a small hiatal hernia. Partially visualized upper abdominal viscera is otherwise within normal limits. Skeletal structures: No lytic or blastic bony lesions are seen. Degenerative change and hyperkyphosis is noted in the thoracic spine. Arthritic change is seen in the shoulders. IMPRESSION: 1. There is no evidence of pulmonary embolus in the main, lobar, or segmental pulmonary arteries. 2. There is no lobar consolidation or pleural effusion. 3. There are 2 subcentimeter groundglass opacities in the right upper lobe which may be on an inflammatory basis. A 6 month follow-up chest CT is recommended to document resolution. 4. Mild cardiomegaly. 5. Advanced coronary artery calcification. 6. There is mild aneurysmal dilatation of the ascending thoracic aorta which measures up to 4.4 cm in diameter. 7. Additional findings as above. ACT 112: Negative or not required by law. Electronically signed by: Yousuf Nicholas M.D. 03/03/2022 7:21 AM Dictated:03/03/22714 Transcribed: 03/03/22714 Resident Activity Tracking Resident Involvement: Resident Care Provided Care Provided: Adult [facility] Medicine (1) Foot deformity Laterality: unspecified laterality Qualified Code(s): M21.969 - Unspecified acquired deformity of unspecified lower leg (2) Depression Active/Remission status: remission status unspecified Depression Type: major depressive disorder Major depression recurrence: unspecified whether recurrent Qualified Code(s): F32.9 - Major depressive disorder, single episode, unspecified (3) Hyperlipidemia Hyperlipidemia type: unspecified Qualified Code(s): E78.5 - Hyperlipidemia, unspecified (4) Hypothyroid Hypothyroidism type: unspecified Qualified Code(s): E03.9 - Hypothyroidism, unspecified (5) Peripheral neuropathy Peripheral neuropathy type: mononeuropathy, unspecified Qualified Code(s): G58.9 - Mononeuropathy, unspecified (6) Sepsis Sepsis acute organ dysfunction status: unspecified Sepsis type: sepsis due to unspecified organism Qualified Code(s): A41.9 - Sepsis, unspecified organism
--- NOTE | 2022-03-03 16:06 | Electrocardiogram Report ---
Test Reason : Blood Pressure : / mmHG Vent. Rate : 103 BPM Atrial Rate : 103 BPM P-R Int : 152 ms QRS Dur : 094 ms QT Int : 356 ms P-R-T Axes : 046 -22 048 degrees QTc Int : 466 ms Sinus tachycardia Otherwise normal ECG When compared with ECG of 21-SEP-2018 13:38, No significant change was found Confirmed by Tio Machuca ([id number]) on 03/03/2022 4:06:03 PM Referred By: REFERRED SELF Confirmed By:Tio Machuca
--- NOTE | 2022-03-03 16:43 | XCELERA ---
[id number] \\[id number]
[2022-03-03] MEDS: PANTOprazole 40 MG TAB PO SCH (20:01)
[2022-03-03] MEDS: ATORVASTATIN 20 MG TAB PO SCH (20:02)
[2022-03-03] MEDS ORDERED: NON-FORMULARY MEDICATION (Coenzyme Q10 [Coq-10] 100 mg Capsule) PO SCH (21:00)
[2022-03-04] MEDS: oxyCODONE HCL IR 5 MG TAB (IMMEDIATE RELEASE) PO PRN ×4 (02:09→21:07)
[2022-03-04] MEDS: DAPTOmycin 450 MG in SYRINGE 0 ML IV SCH (02:10)
[2022-03-04] MEDS: ACETAMINOPHEN 325 MG TAB PO PRN ×2 (02:21→16:05)
[2022-03-04] MEDS: PIPERACILLIN/TAZOBACTAM 3.375 GM in DEXTROSE 5% 100 ML IV SCH ×3 (04:05→21:14)
[2022-03-04] MEDS: LEVOTHYROXINE SODIUM 125 MCG TABLET PO SCH (05:32)
[2022-03-04] MEDS: LACTATED RINGER'S 1,000 ML IV SCH (05:36)
--- NOTE | 2022-03-04 07:06 | Hospitalist Progress Note ---
Date of Service March 04, 2022 Assessment & Plan (1) Sepsis: Plan: Yassine Falk is a 71yo male with PMHx significant HTN, HLD, hypothyroidism, depression, h/o MSSA bacteremia (2018), and h/o of left TKA on 02/18 who presented to [facility] ED on 03/02 fever/chills and generalized weakness x1 day. Bacteremia with sepsis,suspected urinary vs skin/joint source - SIRS 4/4, qSOFA 2/3. - Procal 5.22, Lactate 1.3 on admission - Possible sources include urine (UA w/ + nitrite and + LE) and skin (left knee s/p TKA on 02/18) -Urine culture pending -Blood culture with Group B Beta strep x4 in addition to Gram negative bacilli in anaerobic cultures x2 - s/p Vanco x1 on admission; continue w/ Daptomycin -- discontinued - Continue Zosyn as started on admission -Patient had received 1 dose of CTX on 03/04/22 prior to return of gram negati ve bacilli in anaerobic cultures before resuming Zosyn - s/p IVF resuscitation with 3L NSS boluses in ED - LR @125cc/hr -- DC IVF today - L knee CT 03/02:Status post total left knee arthroplasty. Hardware intact. No periprosthetic fracture. Large complex left knee joint effusion which likely contains blood products. This may reflect hemarthrosis. Extensive soft tissue swelling, greatest anteriorly. No fluid collection identified on unenhanced exam. No soft tissue gas. - Ortho consulted: continue abx. Knee aspirated for 50cc of blood; sent off for analysis. - Infectious Disease consult pending S/p Left TKA On 02/[address] Sullivan. Had been doing well post-operatively. - eval for deep tissue/joint infection as stated above - PRN graded pain regimen: Tylenol 650mg PO Q6H; Oxycodone 5mg PO Q6H; Dilaudid 0.5mg IV Q6H - continue Aspirin 81mg PO BID for DVT ppx Hyperbilirubinemia Tbili 2.1, suspect due to hypovolemia/sepsis. No abdominal pain; low suspicion of biliary obstruction. - Downtrend to 1.7 this AM Ascending Aortic Aneurysm Incidental finding on CTA chest. - recommend US vs CT f/u in 6-12 months - defer to PCP for scheduling this Chronic Medical Problems HTN: hold Losartan due to hypotension -- blood pressures appropriate HLD: continue Atorvastatin Depression: continue Bupropion Peripheral Neuropathy: continue Duloxetine GERD: Protonix per hospital formulary BPH: continue Flomax Hypothyroidism: continue Synthroid FEN/GI: regular diet DVT Prophylaxis: Aspirin BID, TEDs Code Status: full code Disposition: PCU (2) UTI (urinary tract infection): (3) Status post total left knee replacement: (4) Foot deformity: (5) Hypothyroid: (6) Hyperlipidemia: (7) Peripheral neuropathy: (8) Depression: (9) Hyperbilirubinemia: (10) Ascending aortic aneurysm: Admission and Anticipated Discharge Date Admission Date: March 02, 2022 Supervising Physician Co-Signing Physician Notes Resident Physician Supervision Note: I independently interviewed and examined the patient and verified the forte history and physical, reviewed labs and image studies and agree with resident Dr. Carvajal findings and care plan. Subjective Patient evaluated at the bedside this AM. Noting over all feeling well. Denied pain in his L knee. Denies any NVD, SOB, Chest pain, fever, chills, dysuria. Patient does note he has dogs at home, but does not allow them to lick his knee due to it still healing. Review of Systems Review of Systems: All systems reviewed & are unremarkable except as noted in Subjective Physical Exam Constitutional: well developed, well nourished and cooperative; no acute distress Eyes: PERRL, conjunctivae normal, anicteric sclerae ENMT: external ear and nose normal, oropharynx normal Neck: trachea midline, no thyromegaly Respiratory: normal respiratory effort, lungs clear to auscultation Cardiovascular: Rate/Rhythm: regular rate and regular rhythm Heart Sounds: no murmur Gastrointestinal (Abdomen): normal bowel sounds, soft, nontender, no hepatosplenomegaly Musculoskeletal: LLE Midline incision over left knee with jhony in place; incision is clean/dry/intact with no active bleeding or discharge. Psychiatric: A+Ox3, euthymic affect Results & Data Results & Data ([facility]) Vital Signs (Past 12 Hours) Vital Signs Temp Pulse Pulse Resp BP Pulse Ox 03/04/22 04:02 36.9 C 03/04/22 02:56 37.8 C H 95 H 20 136/85 91 03/04/22 02:21 38.4 C H 03/03/22 23:00 36.9 C 74 18 117/77 95 03/03/22 22:45 36.9 C 03/03/22 22:20 78 03/03/22 20:45 37.6 C H 03/03/22 19:39 39.0 C H Resident Activity Tracking Resident Involvement: Resident Care Provided Care Provided: [facility] Medicine (1) Foot deformity Laterality: unspecified laterality Qualified Code(s): M21.969 - Unspecified acquired deformity of unspecified lower leg (2) Depression Active/Remission status: remission status unspecified Depression Type: major depressive disorder Major depression recurrence: unspecified whether recurrent Qualified Code(s): F32.9 - Major depressive disorder, single episode, unspecified (3) Hyperlipidemia Hyperlipidemia type: unspecified Qualified Code(s): E78.5 - Hyperlipidemia, unspecified (4) Hypothyroid Hypothyroidism type: unspecified Qualified Code(s): E03.9 - Hypothyroidism, unspecified (5) Peripheral neuropathy Peripheral neuropathy type: mononeuropathy, unspecified Qualified Code(s): G58.9 - Mononeuropathy, unspecified (6) Sepsis Sepsis acute organ dysfunction status: unspecified Sepsis type: sepsis due to unspecified organism Qualified Code(s): A41.9 - Sepsis, unspecified organism
[2022-03-04] MEDS: DOCUSATE SODIUM/SENNA 50/8.6MG TAB PO SCH (07:26)
[2022-03-04] MEDS: OMEGA-3 (PURIFIED FISH OIL) 1 GM CAP PO SCH (07:30)
[2022-03-04] MEDS: CHOLECALCIFEROL 1,000 UNITS 25 MCG TAB PO SCH (07:30)
[2022-03-04] MEDS: CEROVITE ADV FORMULA TAB PO SCH (07:30)
[2022-03-04] MEDS: ASPIRIN 81 MG ECTAB PO SCH ×2 (07:30→21:48)
[2022-03-04] MEDS: buPROPion XL 150 MG TABCR PO SCH (07:30)
[2022-03-04] MEDS: TAMSULOSIN HCL 0.4 MG CAP PO SCH (07:30)
[2022-03-04] MEDS: ASCORBIC ACID 500 MG TAB PO SCH (07:31)
[2022-03-04] MEDS: DULoxetine HCL 60 MG CAP PO SCH (07:31)
--- NOTE | 2022-03-04 09:51 | Progress Notes ---
SUBJECTIVE: A 71-year-old gentleman admitted 2 weeks after knee replacement with bacteremia and seps is. He is doing much better today. The knee feels better after we drained it. He is in general fee ling better. He is hoping to get out of the hospital. OBJECTIVE: VITAL SIGNS: Temperature 36.8. Vital signs are stable. GENERAL: Shows a pleasant middle-aged male. Sitting on his bed. He is awake, alert, oriented, and appropriate. EXTREMITIES: Examination of the left knee reveals the swelling to be improved. He has got some mild redness on his entire leg. There is no drainage. He has a good straight leg raise. He can bend fr om 0-90 without much difficulty. He still does have a small to a best moderate knee effusion. LABORATORY: No labs this morning. Knee aspirate results revealed 1995 white cells with 75% polys. Gram stain was many WBCs with no org anisms. Cultures still pending. Blood cultures are growing out group B beta strep. ASSESSMENT: A 71-year-old gentleman now about 2 weeks out from a left knee replacement complicated b y group B beta strep sepsis. The etiology is a bit unclear. The knee aspirate for postoperative loo ked pretty normal bloody and does not have a lot of white cells. Not consistent with infection. He is doing better on the antibiotics. He does have multiple potential other sources including urinary tract and then he has had toe ulcers. At this point, he is doing pretty well orthopedically. We miri l continue with the IV antibiotics per medicine. Think with this in his blood, he will probably need several weeks. I do not see a need to intervene with his knee at this point. We will continue to f ollow the cultures. He can weightbear as tolerated. He can resume physical therapy. We are going t o leave the jhony in for now. We will continue to check on him daily in the hospital. Any orthope dic questions can be directed to me at [phone]. Recommend continue DVT prophylaxis include TEDs along with the aspirin. Job ID: [id number]
[2022-03-04] MEDS ORDERED: cefTRIAXone SODIUM 2,000 MG in DEXTROSE 5% 50 ML IV SCH (12:00)
[2022-03-04] MEDS: PANTOprazole 40 MG TAB PO SCH (21:08)
[2022-03-04] MEDS: ATORVASTATIN 20 MG TAB PO SCH (21:08)
[2022-03-05] MEDS: oxyCODONE HCL IR 5 MG TAB (IMMEDIATE RELEASE) PO PRN ×3 (03:47→19:35)
[2022-03-05] MEDS: LEVOTHYROXINE SODIUM 125 MCG TABLET PO SCH (06:08)
[2022-03-05 07:00] LABS: Basophils # (auto) 0.01 K/uL (0-0.2); Basophils % (auto) 0.1 %; Eosinophils # (auto) 0.21 K/uL (0-0.5); Hematocrit (blood only) 31.2 % (42-52); Hemoglobin 10.7 g/dL (14.0-18.0); Immature Granulocytes # (auto) 0.02 K/uL (0.00-0.02); Immature Granulocytes % (auto) 0.3 %; Lymphocytes # (auto) 0.89 K/uL (1.2-3.4); Lymphocytes % (auto) 12.9 %; Mean Corpuscular Hemoglobin 29.9 pg (25-34); Mean Corpuscular Hgb Conc 34.3 g/dL (32-36); Mean Corpuscular Volume 87.2 fL (80-100); Mean Platelet Volume 9.1 fL (7.4-10.4); Monocytes # (auto) 0.81 K/uL (0.11-0.59); Monocytes % (auto) 11.7 %; Neutrophils # (auto) 4.96 K/uL (1.4-6.5); Platelet Count 209 K/uL (130-400); RDW Coefficient of Variation 14.6 % (11.5-14.5); RDW Standard Deviation 46.8 fL (36.4-46.3); Red Blood Count 3.58 M/uL (4.7-6.1)
[2022-03-05] MEDS: DOCUSATE SODIUM/SENNA 50/8.6MG TAB PO SCH ×2 (07:01→07:35)
[2022-03-05] MEDS: PIPERACILLIN/TAZOBACTAM 3.375 GM in DEXTROSE 5% 100 ML IV SCH ×3 (07:04→21:18)
--- NOTE | 2022-03-05 07:06 | Orthopedic Progress Note ---
Date of Service March 05, 2022 Assessment & Plan (1) Status post total left knee replacement: Overall his knee seems to be doing very well. Initial cultures have shown no growth to date. He is feeling well today. He can be weightbearing as tolerated on his left knee. We are keeping a close eye on this with his diagnosis of sepsis. He will continue the IV antibiotics. We are awaiting final cultures from his left knee. Aldo Metzger was seen and examined at bedside this morning. Overall he is feeling fairly well. He is not having much pain in the left knee. He has been up and ambulating into the hallways. He has no complaints.. Review of Systems All systems reviewed & are unremarkable except as noted in HPI & below. Physical Exam On physical examination of the left knee, the incision looks great. There is no redness or signs of infection. Results & Data Results & Data Laboratory Results . Diagnostic Findings . PG Care Time/CCT Total # of Minutes Spent Total Time Spent with Patient: Total time spent is greater than 50% in coordination of care (as documented) at patient's floor/unit and/or counseling patient: Coding Level of Care Code 57215 Post Operative Follow-Up Diagnoses Status post total left knee replacement Z96.652
[2022-03-05] MEDS: ASPIRIN 81 MG ECTAB PO SCH ×2 (07:34→21:18)
[2022-03-05] MEDS: OMEGA-3 (PURIFIED FISH OIL) 1 GM CAP PO SCH (07:35)
[2022-03-05] MEDS: buPROPion XL 150 MG TABCR PO SCH (07:35)
[2022-03-05] MEDS: DULoxetine HCL 60 MG CAP PO SCH (07:35)
[2022-03-05] MEDS: CEROVITE ADV FORMULA TAB PO SCH (07:35)
[2022-03-05] MEDS: ASCORBIC ACID 500 MG TAB PO SCH (07:35)
[2022-03-05] MEDS: CHOLECALCIFEROL 1,000 UNITS 25 MCG TAB PO SCH (07:35)
[2022-03-05] MEDS: TAMSULOSIN HCL 0.4 MG CAP PO SCH (07:35)
[2022-03-05] MEDS: ACETAMINOPHEN 325 MG TAB PO PRN (07:37)
[2022-03-05 07:46] LABS: Albumin Level 3.6 gm/dl (3.4-5.0); Bilirubin,Total 1.1 mg/dl (0.2-1.0); Calcium 8.9 mg/dl (8.5-10.1); Potassium 4.1 mmol/L (3.5-5.1)
[2022-03-05 07:52] LABS: Albumin Globulin Ratio 1.3 (0.9-2); BUN Creatinine Ratio 14.1 (10-20); Creatinine Clr Calc Pharmacy 80.4 ml/min; Est GFR (African American) 89.7 ml/min; Est GFR (Non-African American) 77.4 ml/min; Globulin 2.8 gm/dl (2.5-4.0); Total Protein 6.4 gm/dl (6.0-8.3)
--- NOTE | 2022-03-05 14:02 | Hospitalist Progress Note ---
Date of Service March 05, 2022 Assessment & Plan (1) Sepsis: Plan: Yassine Falk is a 71yo male with PMHx significant HTN, HLD, hypothyroidism, depression, h/o MSSA bacteremia (2018), and h/o of left TKA on 02/18 who presented to [facility] ED on 03/02 fever/chills and generalized weakness x1 day. Bacteremia with sepsis,suspected urinary vs skin/joint source - SIRS 4/4, qSOFA 2/3. - Procal 5.22, Lactate 1.3 on admission. WBC at 6 today, down from 19. - Possible sources include urine (UA w/ + nitrite and + LE) and skin (left knee s/p TKA on 02/18) - Blood culture with Group B Beta strep x4 in addition to Gram negative bacilli in anaerobic cultures x2. Repeat cultures ordered today, 03/05/22. Follow. - Unfortunately, no urine culture was drawn on admission (despite suspicion UA and reports of dysuria). Patient has been on IV abx for 4 days at this point, no utility in collecting now. - left knee aspirate: gram stain neg, culture showing no growth to date - no evidence of cellulitis on exam, ulcers on plantar aspect of b/l feet do not appear infected - no GI symptoms - Continue Zosyn --> plan to deescalate to Rocephin upon speciation of gram - bacilli in blood cultures - MRSA coverage was initiated on admission but d/c once nares swab returned negative. - currently on day 4 of IV abx; recommend a 14 day course given risk of seeding of artificial joint - Echo done 03/03/22 due to gram positive bacteremia: no valvular vegetations noted - [employer] [facility] ID consult obtained 03/03/22: note scanned into chart. Recommend patient remain in hospital until repeat blood cultures prove sterile through 48 hours before PICC line vs. US guided peripheral IV is placed. S/p Left TKA On 02/[address] Sullivan. Had been doing well post-operatively. - eval for deep tissue/joint infection as stated above - PRN graded pain regimen: Tylenol 650mg PO Q6H; Oxycodone 5mg PO Q6H; Dilaudid 0.5mg IV Q6H - continue Aspirin 81mg PO BID for DVT ppx Hyperbilirubinemia Tbili 2.1, suspect due to hypovolemia/sepsis. No abdominal pain; low suspicion of biliary obstruction. - Downtrend to 1.1 Ascending Aortic Aneurysm Incidental finding on bili chest. - recommend US vs CT f/u in 6-12 months - defer to PCP for scheduling this Lung Masses - Incidental finding noted on Chest CTA on admission: 2 small opacities noted in right upper lobe; although they appear inflammatory in nature, repeat Chest CT in 6 months is recommenced to assess for resolution. Chronic Medical Problems HTN: resume home losartan HLD: continue Atorvastatin Depression: continue Bupropion Peripheral Neuropathy: continue Duloxetine GERD: Protonix per hospital formulary BPH: continue Flomax Hypothyroidism: continue Synthroid FEN/GI: heart healthy diet DVT Prophylaxis: Aspirin BID, TEDs Code Status: full code Disposition: Med/Surg (2) UTI (urinary tract infection): (3) Status post total left knee replacement: (4) Foot deformity: (5) Hypothyroid: (6) Hyperlipidemia: (7) Peripheral neuropathy: (8) Depression: (9) Hyperbilirubinemia: (10) Ascending aortic aneurysm: Admission and Anticipated Discharge Date Admission Date: March 02, 2022 Supervising Physician Co-Signing Physician Notes Resident Physician Supervision Note: I independently interviewed and examined the patient and verified the forte history and physical, reviewed labs and image studies and agree with resident Dr. Watson findings and care plan. Subjective no acute events overnight. Patient does admit to several days of dysuria prior to admission Review of Systems Review of Systems: All systems reviewed & are unremarkable except as noted in HPI & below Physical Exam Constitutional: WD/WN, vitals as above no acute distress Eyes: + anicteric sclerae ENMT: external ear and nose normal, oropharynx normal Neck: normal visual inspection and trachea midline Respiratory: normal respiratory effort; no respiratory distress Cardiovascular: RRR, no murmur, no edema Heart Sounds: normal S1 and normal S2 Gastrointestinal (Abdomen): normal bowel sounds, soft, nontender, no hepatosplenomegaly Musculoskeletal: Head/Neck/Chest: normocephalic and head atraumatic Skin: no rashes, warm and dry + ulcers on b/l feet are healing well - a layer of skin has grown over them Neurologic: moves all extremities Psychiatric: A+Ox3, euthymic affect Results & Data Results & Data ([facility]) Vital Signs (Past 12 Hours) Vital Signs Temp Pulse Resp BP Pulse Ox 03/05/22 08:00 36.8 C 75 18 149/75 H 96 03/05/22 03:30 36.9 C 69 20 143/85 H 95 Resident Activity Tracking Resident Involvement: Resident Care Provided Care Provided: Adult Hospital Medicine (1) Foot deformity Laterality: unspecified laterality Qualified Code(s): M21.969 - Unspecified acquired deformity of unspecified lower leg (2) Depression Active/Remission status: remission status unspecified Depression Type: major depressive disorder Major depression recurrence: unspecified whether recurrent Qualified Code(s): F32.9 - Major depressive disorder, single episode, unspecified (3) Hyperlipidemia Hyperlipidemia type: unspecified Qualified Code(s): E78.5 - Hyperlipidemia, unspecified (4) Hypothyroid Hypothyroidism type: unspecified Qualified Code(s): E03.9 - Hypothyroidism, unspecified (5) Peripheral neuropathy Peripheral neuropathy type: mononeuropathy, unspecified Qualified Code(s): G58.9 - Mononeuropathy, unspecified (6) Sepsis Sepsis acute organ dysfunction status: unspecified Sepsis type: sepsis due to unspecified organism Qualified Code(s): A41.9 - Sepsis, unspecified organism
[2022-03-05] MEDS: LOSARTAN POTASSIUM 25 MG TAB PO SCH (19:35)
[2022-03-05] MEDS: ATORVASTATIN 20 MG TAB PO SCH (21:18)
[2022-03-05] MEDS: PANTOprazole 40 MG TAB PO SCH (21:18)
[2022-03-06] MEDS: oxyCODONE HCL IR 5 MG TAB (IMMEDIATE RELEASE) PO PRN ×3 (05:26→20:14)
[2022-03-06] MEDS: LEVOTHYROXINE SODIUM 125 MCG TABLET PO SCH (05:27)
[2022-03-06] MEDS: PIPERACILLIN/TAZOBACTAM 3.375 GM in DEXTROSE 5% 100 ML IV SCH ×3 (05:27→22:22)
[2022-03-06 06:00] LABS: Hematocrit (blood only) 31.1 % (42-52); Hemoglobin 10.3 g/dL (14.0-18.0); Mean Corpuscular Hemoglobin 28.5 pg (25-34); Mean Corpuscular Hgb Conc 33.1 g/dL (32-36); Mean Corpuscular Volume 85.9 fL (80-100); Platelet Count 232 K/uL (130-400); RDW Coefficient of Variation 14.5 % (11.5-14.5); RDW Standard Deviation 45.4 fL (36.4-46.3); Red Blood Count 3.62 M/uL (4.7-6.1); White Blood Count 5.32 K/uL (4.8-10.8)
[2022-03-06 06:23] LABS: ALC (manual) 1.03 K/uL (1.2-3.4); ANC (manual) 2.89 K/uL (1.4-6.5); Basophils # (manual) 0.05 K/uL (0-0.2); Basophils % (manual) 0.9 %; Eosinophils # (manual) 0.51 K/uL (0-0.5); Eosinophils % (manual) 9.6 %; Lymphocytes # (manual) 1.03 K/uL (1.2-3.4); Lymphocytes % (manual) 19.3 %; Monocytes # (manual) 0.79 K/uL (0.11-0.59); Monocytes % (manual) 14.9 %; Myelocytes # (manual) 0.05 K/uL (0-0); Myelocytes % (manual) 0.9 %; Neutrophils # (manual) 2.89 K/uL (1.4-6.5); Neutrophils % (manual) 54.4 %; RBC Morphology Unremarkable
--- NOTE | 2022-03-06 07:04 | Orthopedic Progress Note ---
Date of Service March 06, 2022 Assessment & Plan (1) Status post total left knee replacement: His aspiration cultures from the knee have shown no growth to date. He is on Zosyn for bacteremia. Repeat blood cultures were drawn and we are still awaiting results. He is not having much pain in the left knee. The left knee actually looks pretty good. He is on aspirin for DVT prophylaxis. We will continue to follow him closely. Aldo Metzger was seen and examined at bedside this morning. Overall he is doing fairly well. His knee is not bothering him much. He has very little pain and no complaints. Review of Systems All systems reviewed & are unremarkable except as noted in HPI & below. Physical Exam On physical examination of the left knee, the incision continues to look good. There is no drainage. He has minimal swelling. No signs of infection around the knee. Results & Data Results & Data Laboratory Results . Diagnostic Findings . PG Care Time/CCT Total # of Minutes Spent Total Time Spent with Patient: Total time spent is greater than 50% in coordination of care (as documented) at patient's floor/unit and/or counseling patient: Coding Level of Care Code 10045 Post Operative Follow-Up Diagnoses Status post total left knee replacement Z96.652
[2022-03-06] MEDS: ACETAMINOPHEN 325 MG TAB PO PRN ×2 (08:38→16:38)
[2022-03-06] MEDS: buPROPion XL 150 MG TABCR PO SCH (08:40)
[2022-03-06] MEDS: CHOLECALCIFEROL 1,000 UNITS 25 MCG TAB PO SCH (08:40)
[2022-03-06] MEDS: OMEGA-3 (PURIFIED FISH OIL) 1 GM CAP PO SCH (08:40)
[2022-03-06] MEDS: TAMSULOSIN HCL 0.4 MG CAP PO SCH (08:40)
[2022-03-06] MEDS: ASCORBIC ACID 500 MG TAB PO SCH (08:40)
[2022-03-06] MEDS: ASPIRIN 81 MG ECTAB PO SCH ×2 (08:40→20:16)
[2022-03-06] MEDS: CEROVITE ADV FORMULA TAB PO SCH (08:40)
[2022-03-06] MEDS: DULoxetine HCL 60 MG CAP PO SCH (08:40)
[2022-03-06] MEDS: DOCUSATE SODIUM/SENNA 50/8.6MG TAB PO SCH (08:41)
[2022-03-06] MEDS: LOSARTAN POTASSIUM 25 MG TAB PO SCH (08:41)
--- NOTE | 2022-03-06 08:46 | Hospitalist Progress Note ---
Date of Service March 06, 2022 Assessment & Plan (1) Sepsis: Plan: Yassine Falk is a 71yo male with PMHx significant HTN, HLD, hypothyroidism, depression, h/o MSSA bacteremia (2018), and h/o of left TKA on 02/[address] [facility] ED on 03/02 fever/chills and generalized weakness x1 day. Bacteremia with sepsis,suspected urinary vs skin/joint source - SIRS 4/4, qSOFA 2/3. - Procal 5.22, Lactate 1.3 on admission. WBC has normalized. - Possible sources include urine (UA w/ + nitrite and + LE) and skin (left knee s/p TKA on 02/18) - Blood culture with Group B Beta strep x4 in addition to Gram negative bacilli in anaerobic cultures x2. Repeat blood cultures ordered 03/05/22. Follow. - Unfortunately, no urine culture was drawn on admission (despite suspicion UA and reports of dysuria). Patient has been on IV abx for 5 days at this point, no utility in collecting now. - left knee aspirate: gram stain neg, culture showing no growth to date - no evidence of cellulitis on exam, ulcers on plantar aspect of b/l feet do not appear infected - no GI symptoms - Continue Zosyn --> plan to deescalate to Rocephin upon speciation of gram - bacilli in blood cultures - MRSA coverage was initiated on admission but d/c once nares swab returned negative. - currently on day 5 of IV abx; recommend a 14 day course given risk of seeding of artificial joint - Echo done 03/03/22 due to gram positive bacteremia: no valvular vegetations noted - [employer] ID consult obtained 03/03/22: note scanned into chart. Recommend patient remain in hospital until repeat blood cultures prove sterile through 48 hours before PICC line vs. US guided peripheral IV is placed. - to review plan with ID once repeat cultures sterile to discuss duration of abx treatment in setting of recent joint replacement. S/p Left TKA On 02/[address] Sullivan. Had been doing well post-operatively. - eval for deep tissue/joint infection as stated above - PRN graded pain regimen: Tylenol 650mg PO Q6H; Oxycodone 5mg PO Q6H; Dilaudid 0.5mg IV Q6H - continue Aspirin 81mg PO BID for DVT ppx Hyperbilirubinemia Tbili 2.1, suspect due to hypovolemia/sepsis. No abdominal pain; low suspicion of biliary obstruction. - Downtrend to 1.1 Ascending Aortic Aneurysm Incidental finding on bili chest. - recommend US vs CT f/u in 6-12 months - defer to PCP for scheduling this Lung Masses - Incidental finding noted on Chest CTA on admission: 2 small opacities noted in right upper lobe; although they appear inflammatory in nature, repeat Chest CT in 6 months is recommenced to assess for resolution. Chronic Medical Problems HTN: resume home losartan HLD: continue Atorvastatin Depression: continue Bupropion Peripheral Neuropathy: continue Duloxetine GERD: Protonix per hospital formulary BPH: continue Flomax Hypothyroidism: continue Synthroid FEN/GI: heart healthy diet DVT Prophylaxis: Aspirin BID, TEDs Code Status: full code Disposition: Med/Surg (2) UTI (urinary tract infection): (3) Status post total left knee replacement: (4) Foot deformity: (5) Hypothyroid: (6) Hyperlipidemia: (7) Peripheral neuropathy: (8) Depression: (9) Hyperbilirubinemia: (10) Ascending aortic aneurysm: Admission and Anticipated Discharge Date Admission Date: March 02, 2022 Supervising Physician Co-Signing Physician Notes Resident Physician Supervision Note: I independently interviewed and examined the patient and verified the forte history and physical, reviewed labs and image studies and agree with resident Dr. Watson findings and care plan. Subjective no acute events overnight. Eating and drinking well. eager to be discharged Review of Systems Review of Systems: All systems reviewed & are unremarkable except as noted in HPI & below Physical Exam Constitutional: WD/WN, vitals as above no acute distress Eyes: + anicteric sclerae ENMT: external ear and nose normal, oropharynx normal Neck: normal visual inspection and trachea midline Respiratory: normal respiratory effort; no respiratory distress Cardiovascular: RRR, no murmur, no edema Heart Sounds: normal S1 and normal S2 Gastrointestinal (Abdomen): normal bowel sounds, soft, nontender, no hepatosplenomegaly Musculoskeletal: Head/Neck/Chest: normocephalic and head atraumatic Skin: no rashes, warm and dry Neurologic: moves all extremities Psychiatric: A+Ox3, euthymic affect Results & Data Results & Data ([facility]) Vital Signs (Past 12 Hours) Vital Signs Temp Pulse Resp BP Pulse Ox 06/05/22 07:50 36.7 C 62 18 138/87 94 03/05/22 22:21 37 C 68 18 147/95 H 96 Resident Activity Tracking Resident Involvement: Resident Care Provided Care Provided: Adult [facility] Medicine (1) Foot deformity Laterality: unspecified laterality Qualified Code(s): M21.969 - Unspecified acquired deformity of unspecified lower leg (2) Depression Active/Remission status: remission status unspecified Depression Type: major depressive disorder Major depression recurrence: unspecified whether recurrent Qualified Code(s): F32.9 - Major depressive disorder, single episode, unspecified (3) Hyperlipidemia Hyperlipidemia type: unspecified Qualified Code(s): E78.5 - Hyperlipidemia, unspecified (4) Hypothyroid Hypothyroidism type: unspecified Qualified Code(s): E03.9 - Hypothyroidism, unspecified (5) Peripheral neuropathy Peripheral neuropathy type: mononeuropathy, unspecified Qualified Code(s): G58.9 - Mononeuropathy, unspecified (6) Sepsis Sepsis acute organ dysfunction status: unspecified Sepsis type: sepsis due to unspecified organism Qualified Code(s): A41.9 - Sepsis, unspecified organism
[2022-03-06] MEDS: ATORVASTATIN 20 MG TAB PO SCH (20:16)
[2022-03-06] MEDS: PANTOprazole 40 MG TAB PO SCH (20:16)
[2022-03-07] MEDS: PIPERACILLIN/TAZOBACTAM 3.375 GM in DEXTROSE 5% 100 ML IV SCH ×2 (05:47→13:15)
[2022-03-07] MEDS: LEVOTHYROXINE SODIUM 125 MCG TABLET PO SCH (05:49)
[2022-03-07] MEDS: oxyCODONE HCL IR 5 MG TAB (IMMEDIATE RELEASE) PO PRN (05:49)
[2022-03-07 07:42] LABS: Basophils # (auto) 0.02 K/uL (0-0.2); Basophils % (auto) 0.3 %; Eosinophils # (auto) 0.41 K/uL (0-0.5); Eosinophils % (auto) 6.9 %; Hematocrit (blood only) 32.6 % (42-52); Hemoglobin 10.8 g/dL (14.0-18.0); Immature Granulocytes # (auto) 0.21 K/uL (0.00-0.02); Immature Granulocytes % (auto) 3.6 %; Lymphocytes # (auto) 1.42 K/uL (1.2-3.4); Mean Corpuscular Hemoglobin 28.8 pg (25-34); Mean Corpuscular Hgb Conc 33.1 g/dL (32-36); Mean Corpuscular Volume 86.9 fL (80-100); Mean Platelet Volume 8.9 fL (7.4-10.4); Monocytes # (auto) 0.76 K/uL (0.11-0.59); Monocytes % (auto) 12.9 %; Neutrophils # (auto) 3.09 K/uL (1.4-6.5); Neutrophils % (auto) 52.3 %; Platelet Count 272 K/uL (130-400); RDW Coefficient of Variation 14.4 % (11.5-14.5); RDW Standard Deviation 45.8 fL (36.4-46.3); Red Blood Count 3.75 M/uL (4.7-6.1); White Blood Count 5.91 K/uL (4.8-10.8)
[2022-03-07] MEDS: ASPIRIN 81 MG ECTAB PO SCH (07:47)
[2022-03-07] MEDS: ASCORBIC ACID 500 MG TAB PO SCH (07:47)
[2022-03-07] MEDS: CHOLECALCIFEROL 1,000 UNITS 25 MCG TAB PO SCH (07:48)
[2022-03-07] MEDS: buPROPion XL 150 MG TABCR PO SCH (07:48)
[2022-03-07] MEDS: DOCUSATE SODIUM/SENNA 50/8.6MG TAB PO SCH (07:49)
[2022-03-07] MEDS: DULoxetine HCL 60 MG CAP PO SCH (07:49)
[2022-03-07] MEDS: OMEGA-3 (PURIFIED FISH OIL) 1 GM CAP PO SCH (07:49)
[2022-03-07] MEDS: LOSARTAN POTASSIUM 25 MG TAB PO SCH (07:50)
[2022-03-07] MEDS: TAMSULOSIN HCL 0.4 MG CAP PO SCH (07:50)
[2022-03-07] MEDS: CEROVITE ADV FORMULA TAB PO SCH (07:50)
--- NOTE | 2022-03-07 08:25 | Progress Notes ---
DATE OF SERVICE: 03/07/2022 SUBJECTIVE: A 71-year-old gentleman now a little over 2 weeks out from left knee replacement, admitt ed with bacteremia and impending sepsis. He is doing much better. Feels well. Knee pain is control led. No other complaints. Anxious to get out of the hospital. OBJECTIVE: VITAL SIGNS: Temperature 36.8. Vital signs are stable. PHYSICAL EXAMINATION: GENERAL: Shows a pleasant middle-aged male. He is sitting up in bed, reading and looking at his com puter and trying to interpret his medical record. EXTREMITIES: Examination of the left leg reveals the incision to be healed nicely. There are no sig ns of drainage. He has got good straight leg raise. Range of motion is 0-90 degrees. No instabilit y. LABORATORIES: Hemoglobin 10.8. Hematocrit 32.6. Culture results; knee cultures are no growth. Rep eat blood cultures are no growth. ASSESSMENT: A 71-year-old gentleman, a little over 2 weeks out from a left knee replacement complica mookie by bacteremia postoperatively involving group B beta streptococcus as well as a Proteus mirabilis . Certainly unusual situation. His knee cultures have been no growth to date. The knee aspirate wa s a fairly benign and normal postoperative hematoma/hemarthrosis. Clinically, he does not appear to have a knee infection. PLAN: 1. DVT prophylaxis including thigh-high TEDs, SCDs, and aspirin for another 4 weeks. 2. PT/OT. We are going to resume physical therapy. 3. Antibiotics. He is currently on antibiotics and we will allow infectious disease to manage that. It looks like he will need at least 2 weeks of IV antibiotics and then we will base this based on h is clinical exam and ID recommendations. We may put him on another 2-4 weeks of p.o. antibiotics aft er that, but we will see how his clinical exam progresses. 4. Disposition: He is orthopedically okay for discharge any time medically stable. I am going to s ee him later this week for suture removal. Any orthopedic questions can be directed to me at . Job ID: [id number]
[2022-03-07] MEDS ORDERED: cefTRIAXone SODIUM 2,000 MG in DEXTROSE 5% 50 ML IV SCH (14:15)
--- NOTE | 2022-03-07 16:34 | Discharge Summary ---
Date of Service March 07, 2022 Admission HPI Per Admitting Provider Yassine Falk is a 71yo male with PMHx significant HTN, HLD, hypothyroidism, depression, h/o MSSA bacteremia (2018), and h/o of left TKA on 02/18 who presented to [facility] ED on 03/02 fever/chills and generalized weakness x1 day. Of note patient had total LKA by Dr. Sullivan on 02/18; does report mild redness around his surgical incision as well as occasional brown discharge from the incision and mild swelling but he has not experienced any warmth or pain and has been able to participate in PT without issues. He denies runny nose, cough, chest pain, SOB, N/V, abdominal pain, diarrhea or rash. He does report significant neuropathy of feet 2/2 to previous bunion surgeries and revisions. Did have MSSA bacteremia in 2018 due to presumed skin source - had a non-healing ulcer of his left foot at that time. However patient denies any ulcers, bleeding or discharge of his feet currently. In the ED patient was hypotensive in 80s/60s, tachycardic 120s and febrile 38.2C. Satting well on room air. Labs significant for WBC 19.34 (neutrophilic predominance and L shift) and Hgb 11.5 (~baseline). Procalcitonin 5.22, lactate 1.3. Tbili 2.1, ALP 190. UA positive for nitrites and trace LE. COVID/flu/RSV negative. CXR without acute cardiopulmonary process. L knee XR with moderate to large knee effusion with anterior soft tissue swelling, s/p left TKA with intact hardware. CTA chest w/o PE (but incidentally showing 4.1cm ascending aortic aneurysm) Patient was given 1 dose of Cefepime and then started on Vanco/Zosyn. Was also given Tylenol 1g IV x1 and 3L NSS boluses, after which BP improved to 100/70 and HR improved to 90s. Admission Exam Per Admitting Provider General: A&Ox3. NAD. Cooperative. HEENT: Atraumatic, normocephalic. Pulm: CTAB A&P. -wheezes, -rales, -rhonchi. Symmetrical chest rise. No increase work of breathing. No respiratory distress. Cardiac: RRR, -mrg. Radial pulses intact and symmetrical. No LE edema. Abdominal: soft, non-tender, non-distended, BS x 4 Left knee: surgical incision with jhony intact and no signs of dehiscence. There is some surrounding warmth and erythema and minimal tenderness to palpation. No visible discharge. No red streaking. Feet: [id number]-xm-dy sensation in feet. Blister on left 1st digit (plantar surface) but no open ulceration and no surrounding erythema. Principal Diagnosis bacteremia Discharge Exam GENERAL: No acute distress. Well developed and well nourished. Vital signs reviewed. EYES: EOMI. Anicteric sclerae. HENT: Moist mucous membranes. RESPIRATORY: Clear to auscultation bilaterally. No wheezing, rales, or rhonchi. CARDIOVASCULAR: Regular rate and rhythm. No murmurs. ABDOMEN: Soft, non-tender and non-distended. Normal bowel sounds. SKIN: Warm, dry. NEUROLOGIC: A/O x3. Normal speech. PSYCHIATRIC: Cooperative. Appropriate mood and affect. Discharge Data Allergies Allergy/AdvReac Type Severity Reaction Status Date / Time No Known Allergies Allergy Verified 03/02/22 20:15 Consultations 03/02/22 21:50 ED Decision to Admit Stat 03/03/22 11:07 Consult Infectious Diseases Routine 03/07/22 13:19 Consult Orthopedic Surgery Routine Ordered Studies 03/02/22 20:52 CT angio chest PE protocol Urgent 03/02/22 23:57 CT knee LT wo con Urgent Hospital Course (1) Sepsis: Yassine Falk is a 71yo male with PMHx significant HTN, HLD, hypothyroidism, depression, h/o MSSA bacteremia (2018), and h/o of left TKA on 02/18 who presented to [facility] ED on 03/02 fever/chills and generalized weakness x1 day. Bacteremia with sepsis,suspected urinary vs skin/joint source - SIRS 4/4, qSOFA 2/3. - Procal 5.22, Lactate 1.3 on admission. WBC has normalized. - Possible sources include urine (UA w/ + nitrite and + LE) and skin (left knee s/p TKA on 02/18) - Blood culture with Group B Beta strep x4 in addition to Gram negative bacilli in anaerobic cultures x2. Repeat blood cultures ordered 03/05/22 negative at 48 hours (day of discharge). - left knee aspirate: gram stain neg, culture showing no growth to date - no evidence of cellulitis on exam, ulcers on plantar aspect of b/l feet do not appear infected - no GI symptoms - Received Zosyn during hospitalization; transitioned to ceftriaxone on day of discharge - MRSA coverage was initiated on admission but d/c once nares swab returned negative. - Echo done 03/03/22 due to gram positive bacteremia: no valvular vegetations noted - [employer] ID consult obtained 03/03/22: note scanned into chart. S/p Left TKA On 02/[address] Sullivan. Had been doing well post-operatively. - eval for deep tissue/joint infection as stated above - PRN graded pain regimen: Tylenol 650mg PO Q6H; Oxycodone 5mg PO Q6H; Dilaudid 0.5mg IV Q6H - continue Aspirin 81mg PO BID for DVT ppx Hyperbilirubinemia Tbili 2.1, suspect due to hypovolemia/sepsis. No abdominal pain; low suspicion of biliary obstruction. - Downtrend to 1.1 Ascending Aortic Aneurysm Incidental finding on bili chest. - recommend US vs CT f/u in 6-12 months - defer to PCP for scheduling this Lung Masses - Incidental finding noted on Chest CTA on admission: 2 small opacities noted in right upper lobe; although they appear inflammatory in nature, repeat Chest CT in 6 months is recommenced to assess for resolution. Chronic Medical Problems HTN: continue home losartan HLD: continue Atorvastatin Depression: continue Bupropion Peripheral Neuropathy: continue Duloxetine GERD: Protonix per hospital formulary BPH: continue Flomax Hypothyroidism: continue Synthroid Code Status: full code Disposition: home w/ HH services (2) UTI (urinary tract infection): (3) Status post total left knee replacement: (4) Foot deformity: (5) Hypothyroid: (6) Hyperlipidemia: (7) Peripheral neuropathy: (8) Depression: (9) Hyperbilirubinemia: (10) Ascending aortic aneurysm: Total Time Total Time Spent Total Time Spent (In Minutes): <30 Discharge Plan Discharge Items Patient Disposition: Home - Home Health Services Reason For Visit: SEPSIS Discharge Diagnosis: bacteremia Activity: Per Instructions section Non-emergency contact: Primary Care Provider Call non-emergency contact if: you have any medication questions Follow-up/Referrals: Cole Dobbins [Primary Care Provider] - Diet: Regular Addtl Attending Provider Instructions: Mr. Falk, It was our pleasure to care for you at [facility] from 03/02/22 to 03/07/22. You initially presented to the emergency department with fever, chills, and generalized weakness. You were found to be bacteremic (a blood infection) with the possible source being a urinary tract infection. While in the hospital, you were treated with IV antibiotics and you have done well. At this time, we feel that it is safe for you to be discharged home. Given the type of bacteria causing the infection, as well as your recent left knee surgery, you are being discharged home on a 6 week course of IV antibiotic therapy with ceftriaxone. This medication will be an infusion through the PICC line once every 24 hours. Home health will assist in teaching about the use of the IV antibiotic therapy. Please continue to follow up with orthopedics later this week as scheduled. Additionally, as we discussed, there were a few incidental findings during hospitalization for which you should follow up with your family doctor: 1. Ascending aortic aneurysm -- you should have repeat imaging in 6-12 months. Your PCP will have further recommendations for you in regards to this concern. 2. Lung masses/opacities -- you should have repeat chest CT in 6 months. Your PCP will have further recommendations for you. Call your primary care physician or return to the ER with any worsening or concerning symptoms including recurrent fever, generalized weakness, fatigue. A follow-up appointment has been scheduled for you with your PCP's office on , 03/10/2022 at 7:[address] Garrison. IF YOU ARE UNABLE TO MAKE THIS APPOINTMENT, PLEASE CALL THE [facility]ILY [facility]IC[facility] OFFICE AT [phone]. Pending Studies at Discharge: No Stand-Alone Forms: My [facility] [employer] [facility], Smoking Cessation Medications and DC Order Prescriptions: New ceftriaxone 2 gram recon soln 2 g IV DAILY 42 Days RF: 0 Continued aspirin [Jerrod Low Dose Aspirin] 81 mg tablet,delayed release (DR/EC) 81 mg PO BID 45 Days Qty: 90 RF: 0 tamsulosin [Flomax] 0.4 mg capsule 0.4 mg PO DAILY Qty: 7 RF: 2 acetaminophen 500 mg capsule 1,000 mg PO TID 30 Days Qty: 180 RF: 0 sennosides-docusate sodium [Senokot-S] 8.6-50 mg tablet 1 tab-cap PO DAILY Qty: 14 RF: 0 oxycodone 5 mg tablet 5 - 10 mg PO Q6 PRN (Reason: pain) Qty: 40 RF: 0 levothyroxine 125 mcg tablet 125 mcg PO QAM RF: 0 ascorbic acid (vitamin C) [Vitamin C] 1,000 mg Tablet 1 g PO QAM RF: 0 caurhsywsxgx-yljrpytd-olqrbl Tablet 1 tab PO QAM RF: 0 omega-3 fatty acids Capsule 1,000 mg PO QAM RF: 0 cholecalciferol (vitamin D3) [Vitamin D3] 25 mcg (1,000 unit) Tablet 1,000 mcg PO QAM RF: 0 atorvastatin 20 mg tablet 20 mg PO HS RF: 0 Amino Acid Capsule 2 cap PO .TID UD RF: 0 coenzyme Q10 [CoQ-10] 100 mg Capsule 200 mg PO HS RF: 0 bupropion HCl 150 mg Tablet Extended Release 24 Hr 150 mg PO QAM RF: 0 omeprazole 20 mg Tablet,Delayed Release (Dr/Ec) 20 mg PO HS RF: 0 duloxetine [Cymbalta] 60 mg Capsule,Delayed Release(Dr/Ec) 60 mg PO QAM RF: 0 losartan [Cozaar] 25 mg Tablet 25 mg PO DAILY RF: 0 Discontinued ondansetron HCl 4 mg tablet 4 mg PO Q6 PRN (Reason: nausea) Qty: 30 RF: 0 cephalexin 500 mg capsule 500 mg PO TID 10 Days Qty: 30 RF: 0 Discharge Orders: Discharge Order (Routine); Ordered 03/07/22 Ordered By: Anahy Garcia Admission Data Admit Date/Time: 03/02/22 22:32 Attending Provider: Bronson Napier Admit Provider: Leighton Oconnor Primary Care Provider: Cole Dobbins Other Providers: Francie,Home [facility] ; Jaida Watson ; Charis Sullivan ; Bonilla West ; Nita Pineda ; Adebayo Sullivan I. ; Rolando Preciado II ; Fannie Aly ; Zach Berkowitz ; Haseeb Francis ; Fredo Sullivan Supervising Physician Co-Signing Physician Notes I personally examined the patient and verified all forte points of history and exam, discussed case, and agree with decision making with Dr Garcia feeling good feels up to going home vitals noted nad heent nc at mmm breathing unlabored no accessory muscles good effort skin no rashes no pallor or icterus polymicrobial bacteremia w sepsis present on admission - proteus and group B strep. follow up cultures cleared, knee aspirate clear. safe/stable for home. after discussion - risk of overtreating w IV abx fairly low given that ceftriaxone covers both, is low side effect/good safety profile etc - main risk is just having IV in longer (but given no TPN and no cancer - risk of bacteremia from line, risk of DVT from line both low) - comparatively - while no clear evidence that knee is seeded, risk of undertreatment would be the concern that the knee could seed leading to many downstream complications - after discussion pt quite amenable to longer course IV. set up, stable for home otherwise as above Resident Activity Tracking Resident Involvement: Resident Care Provided Care Provided: Adult Hospital Medicine
--- NOTE | 2022-03-07 17:04 | Billing Data ---
Date of Service March 07, 2022 Coding Level of Care Code D/C DAY MANAGEMENT <30 MINS
== END 2022-03-07 18:10 | disposition home health service (06) | DRG 872 ==
LOC: ED 18:45 → 2S 22:32 → SUATTDRO 22:32 → 2S 23:10 → 3N 03-05 17:58